=== PATIENT | female | born 1965 | race Caucasian/White ===

== ENCOUNTER → 2021-06-03 11:27 | Outpatient (BNVA) | payer MEDICARE, SELFPAY | PROVIDERS: Visit Provider Nurse Practitioner Family | DX: K58.2 Mixed irritable bowel syndrome (principal); I10 Essential (primary) hypertension; E55.9 Vitamin D deficiency, unspecified; E11.9 Type 2 diabetes mellitus without complications; I25.2 Old myocardial infarction | CPT/HCPCS: 80053; 80061; 81003; 82306; 83036; 84443; 85025 ==

== ENCOUNTER → 2021-09-17 08:43 | Outpatient (BNVA) | payer MEDICARE, SELFPAY | PROVIDERS: PCP Nurse Practitioner Family; Visit Provider Nurse Practitioner Family | DX: I10 Essential (primary) hypertension (principal); E11.9 Type 2 diabetes mellitus without complications | CPT/HCPCS: 36415; 80053; 85025 ==

== ENCOUNTER 2021-11-17 10:47 | Outpatient (CLI) | payer MEDICARE, MEDICAID, SELFPAY ==
[2021-11-17 12:09] LABS: HIV 1 & 2 Antibody Non-Reactive (Non-Reactiv); HIV 1 & 2 Antigen Non-Reactive (Non-Reactiv)
[2021-11-20 14:49] LABS: Quantiferon Mitogen >10.00 IU/mL; Quantiferon Nil 0.01 IU/mL; Quantiferon Plus TB2 0.01 IU/mL; Quantiferon TB Gold NEGATIVE (NEGATIVE)
== END 2021-11-17 10:48 | disposition home or self-care (01) ==
LOC: LAB 11:04
PROVIDERS: PCP Nurse Practitioner Family; Visit Provider Dermatology
DX: L40.50 Arthropathic psoriasis, unspecified (principal); L40.9 Psoriasis, unspecified; Z79.899 Other long term (current) drug therapy
CPT/HCPCS: 36415; 86480; 87806

== ENCOUNTER → 2022-01-21 09:28 | Outpatient (BNVA) | payer MEDICARE, MEDICAID, SELFPAY | PROVIDERS: PCP Nurse Practitioner Family; Visit Provider Internal Medicine | DX: J98.9 Respiratory disorder, unspecified (principal); R50.9 Fever, unspecified; Z20.822 Contact with and (suspected) exposure to COVID-19 | CPT/HCPCS: 87635 ==

== ENCOUNTER 2022-01-24 06:33 | Day surgery (SDC) | payer MEDICARE, MEDICAID, SELFPAY ==
[2022-01-21 07:58] VITALS: BMI 47.7
--- NOTE | 2022-01-24 07:11 | ANES.PREANE2 ---
Pre-Anesthetic Assessment Height/Weight: Height 1.65 m Weight 130.181 kg Preop Diagnosis: Dysphagia, Screen Operation Date: 01/24/22 08:15 Proposed Procedures p EGD Dilation w/bougle/colonoscopy [id number]/R13.10 dysphagia(Not Applicable) - Rey Wells MD s Colonoscopy(Not Applicable) - Rey Wells MD Familial anesthetic complications: None Was Beta Kartik taken within 24 hours: Yes Was Clonidine taken within 24 hours: N/A Last intake: 01/23/22 Social No alcohol and No tobacco Exam alert, oriented x 3, clear to auscultation bilaterally and regular rate & rhythm Airway Submandibular: within normal limits Cervical ROM: within normal limits Mallampati: Class II Comments: Comments: Missing teeth Pulmonary Exertional Dyspnea and Sleep Apnea (On BIPAP) CV/HEM Stable Angina, Hypertension and Myocardial Infarction Chest pain with exertion Hepatic None reported GI Gastroesophageal Reflux Disease IBS Metabolic Diabetes Mellitus [facility] Fibromyalgia and Osteoarthritis/DJD Psoriatic arthritis Neuropsych Anxiety, Cerebrovascular Accident (Residual LE weakness) and Depression Anesthetic Plan ASA status: 3 Anesthesia: Anesthesia Evaluation Other: I discussed with the patient risks, goals, and benefits of MAC and general anesthesia. We discussed spectrum of MAC anesthesia including conversion to general as well as possibility of recall of intraoperative stimuli including discomfort/pain. Patient agrees to proceed with MAC. Risk of > 500 ml blood loss (7ml/kg in children): No Medications/Allergies Home Medications Medication Instructions Recorded Confirmed Last Taken Type amlodipine 10 mg tablet 10 mg PO DAILY 06/03/21 01/24/22 01/23/22 History blood-glucose meter (Accu-Chek 06/03/21 01/21/22 Unknown History Nellie Plus Meter) carvedilol 12.5 mg tablet (Coreg) 12.5 mg PO BID 06/03/21 01/24/22 01/24/22 04:30 History cholecalciferol (vitamin D3) 1,250 50,000 unit PO .weekly cap 06/03/21 01/21/22 Unknown History mcg (50,000 unit) capsule clopidogrel 75 mg tablet (Plavix) 75 mg PO DAILY 06/03/21 01/24/22 01/20/22 History desonide 0.05 % topical cream 1 applic TOPICAL BID 06/03/21 01/24/22 01/23/22 History diclofenac sodium 1 % topical gel 2 g TOPICAL QID 06/03/21 01/24/22 01/23/22 History ibuprofen 800 mg tablet 800 mg PO TID 06/03/21 01/24/22 01/23/22 History blood-glucose meter #90 ea 08/16/21 01/21/22 Unknown Rx clobetasol 0.05 % topical ointment 1 applic TOPICAL BID 14 Days #60 g 09/30/21 01/24/22 01/23/22 Rx guselkumab 100 mg/mL subcutaneous 100 mg SUBCUT .q8 weeks #1 ml 10/28/21 01/21/22 Unknown Rx auto-injector (Tremfya) omeprazole 40 mg capsule,delayed 40 mg PO DAILY 30 Days #30 cap 11/04/21 01/24/22 01/23/22 Rx release gabapentin 600 mg tablet See Rx Instructions PO TID 30 Days 11/10/21 01/24/22 01/23/22 Rx #120 tab sertraline 100 mg tablet 100 mg PO DAILY 90 Days #90 tab 11/10/21 01/24/22 01/23/22 Rx sertraline 50 mg tablet 50 mg PO DAILY 90 Days #90 tab 11/10/21 01/24/22 01/23/22 Rx walker #1 ea 11/10/21 01/21/22 Unknown Rx atorvastatin 40 mg tablet See Rx Instructions .ROUTE 01/03/22 01/24/22 01/23/22 Rx .COMPLEX #30 tab lorazepam 0.5 mg tablet 0.5 mg PO DAILY PRN 30 Days #15 tab 01/06/22 01/24/22 01/23/22 Rx ondansetron 4 mg disintegrating 4 mg TRANSLINGUAL Q8H PRN tab 01/06/22 01/24/22 01/23/22 History tablet promethazine 25 mg tablet 25 mg PO TID PRN 10 Days #30 tab 01/06/22 01/24/22 01/23/22 Rx Allergies Allergy/AdvReac Type Severity Reaction Status Date / Time aspirin Allergy Intermediate sick Verified 01/24/22 07:19 codeine Allergy Intermediate sick Verified 01/24/22 07:19 tetracycline Allergy Intermediate sick Verified 01/24/22 07:19 amoxicillin AdvReac Mild itching Verified 01/24/22 07:19 [facility] Anesthesia Medical History Anxiety Anxiety and depression Arthritis of both shoulder regions Breast cancer screening by mammogram Controlled diabetes mellitus type II without complication CVA (cerebrovascular accident due to intracerebral hemorrhage) Aug 2017 TPA, Oct 2016 TAP, Sep 2016, Aug 2016, and 2013. Dental infection Depression Diabetic eye exam Encounter for BiPAP use counseling Eye exam, routine Fibromyalgia Frequent falls GERD (gastroesophageal reflux disease) History of myocardial infarction November Hypertension IBS (irritable bowel syndrome) Migraines Mixed hyperlipidemia Nausea & vomiting Neuropathy Obstructive sleep apnea Last Sleep study Nov 2020 at [facility] Psoriasis Psoriatic arthritis Tympanic membrane perforation Vitamin D deficiency Surgical History H/O bilateral mastectomy Breast cancer diagnosed at age 18 Found lump in right breast that increased. This surgery was done at [place]. History of hysterectomy JONATHAN with oopherectomy Age 21. Uterine Cancer S/P tonsillectomy Social History Smoking and tobacco status: never smoked History of recent travel: No Data Anesthesia Cardiac Studies: No Data to Display
[2022-01-24 07:18] VITALS: BP 168/92; PULSE 66; RESP 18; TEMP 36.3; O2SAT 97
--- NOTE | 2022-01-24 07:32 | P.HP_ITS ---
Same Day Surgery H&P Indication for Procedure/HPI DATE OF PROCEDURE: January 24, 2022 CHIEF COMPLAINT/INDICATIONFOR SURGICAL PROCEDURE: Screening and dysphagia PREOP DIAGNOSIS: Dysphagia, Screen PLANNED PROCEDURE: Operation Date: 01/24/22 08:15 Proposed Procedures p EGD Dilation w/bougle/colonoscopy [id number]/R13.10 dysphagia(Not Applicable) - Rey Wells MD s Colonoscopy(Not Applicable) - Rey Wells MD Medications/Allergies* Home Medications Medication Instructions Recorded Confirmed Type amlodipine 10 mg tablet 10 mg PO DAILY 06/03/21 01/24/22 History blood-glucose meter (Accu-Chek 06/03/21 01/21/22 History Nellie Plus Meter) carvedilol 12.5 mg tablet (Coreg) 12.5 mg PO BID 06/03/21 01/24/22 History cholecalciferol (vitamin D3) 1,250 50,000 unit PO .weekly cap 06/03/21 01/21/22 History mcg (50,000 unit) capsule clopidogrel 75 mg tablet (Plavix) 75 mg PO DAILY 06/03/21 01/24/22 History desonide 0.05 % topical cream 1 applic TOPICAL BID 06/03/21 01/24/22 History diclofenac sodium 1 % topical gel 2 g TOPICAL QID 06/03/21 01/24/22 History ibuprofen 800 mg tablet 800 mg PO TID 06/03/21 01/24/22 History ondansetron 4 mg disintegrating 4 mg TRANSLINGUAL Q8H PRN tab 01/06/22 01/24/22 History tablet Allergies/Adverse Reactions Allergy/AdvReac Type Severity Reaction Status Date / Time aspirin Allergy Intermediate sick Verified 01/24/22 07:19 codeine Allergy Intermediate sick Verified 01/24/22 07:19 tetracycline Allergy Intermediate sick Verified 01/24/22 07:19 amoxicillin AdvReac Mild itching Verified 01/24/22 07:19 Pertinent History/Comorbid Conditions* Medical History (Updated 01/06/22 @ 09:34 by SIOBHAN Maradiaga) Anxiety Anxiety and depression Arthritis of both shoulder regions Breast cancer screening by mammogram Controlled diabetes mellitus type II without complication CVA (cerebrovascular accident due to intracerebral hemorrhage) Aug 2017 TPA, Oct 2016 TAP, Sep 2016, Aug 2016, and 2013. Dental infection Depression Diabetic eye exam Encounter for BiPAP use counseling Eye exam, routine Fibromyalgia Frequent falls GERD (gastroesophageal reflux disease) History of myocardial infarction November Hypertension IBS (irritable bowel syndrome) Migraines Mixed hyperlipidemia Nausea & vomiting Neuropathy Obstructive sleep apnea Last Sleep study Nov 2020 at [facility] Psoriasis Psoriatic arthritis Tympanic membrane perforation Vitamin D deficiency Surgical History (Updated 06/03/21 @ 09:31 by SIOBHAN Maradiaga) H/O bilateral mastectomy Breast cancer diagnosed at age 18 Found lump in right breast that increased. This surgery was done at [place]. History of hysterectomy JONATHAN with oopherectomy Age 21. Uterine Cancer S/P tonsillectomy Social History Smoking and tobacco status: never smoked History of recent travel: No Pertinent Exam Findings alert, oriented x 3, clear to auscultation bilaterally, regular rate & rhythm, operative site marked and procedure specific exam findings Recommendations Surgery/Procedure today Coding Level of Care Code Acute Supervisor Remelt for Vitag Janie
[2022-01-24] MEDS: sodium chloride 0.9% 1,000 ML 30 ML IV (07:38)
[2022-01-24 08:32] VITALS: BP 166/81; PULSE 63; RESP 16; TEMP 36.1; O2SAT 94
[2022-01-24 08:42] VITALS: BP 158/83; PULSE 61; RESP 16; TEMP 36.1; O2SAT 96
--- NOTE | 2022-01-24 13:48 | ANE.PACU2 ---
Inpatient post-anesthesia follow up: Airway intact: Yes Vital signs: Temperature 97 F Pulse Rate 61 Respiratory Rate 16 Blood Pressure 158/83 Pulse Oximetry 96 Oxygen Delivery Me thod Room Air Oxygen Flow Rate Fraction of Inspir ed Oxygen Hydration adequate: Yes Nausea and vomiting: No Pain level: 1 Mental status: Baseline
[2022-01-26 09:45] LABS: H. Pylori / CLO Test Negative
== END 2022-01-24 09:07 | disposition home or self-care (01) ==
PROVIDERS: PCP Nurse Practitioner Family; Visit Provider Internal Medicine
PROC: 0DJD8ZZ Inspection of Lower Intestinal Tract, Via Natural or Artificial Opening Endoscopic (ICD-10-PCS; CPT 45378; 2022-01-24 08:15)
DX: Z12.11 Encounter for screening for malignant neoplasm of colon (principal); K29.70 Gastritis, unspecified, without bleeding; R13.10 Dysphagia, unspecified; F41.9 Anxiety disorder, unspecified; F32.9 Major depressive disorder, single episode, unspecified; E11.9 Type 2 diabetes mellitus without complications; Z86.73 Personal history of transient ischemic attack (TIA), and cerebral infarction without residual deficits; M79.7 Fibromyalgia; I10 Essential (primary) hypertension; E78.2 Mixed hyperlipidemia; G47.33 Obstructive sleep apnea (adult) (pediatric)
CPT/HCPCS: 43239; 45378; 87077; G0121; J2704; J7030

== ENCOUNTER 2023-04-02 11:56 | Emergency (ER) | payer MEDICARE, SELFPAY ==
[2023-04-02] VITALS (9 sets, daily range): BP systolic 146–170; BP diastolic 80–119; PULSE 92–106; RESP 14–18; TEMP 37.2; O2SAT 89–98
--- NOTE | 2023-04-02 12:35 | CTR_ITS ---
PROCEDURE INFORMATION: Exam: CTA Chest With Contrast Exam date and time: 04/02/2023 1:15 PM Age: 58 years old Clinical indication: Abdominal pain; Generalized; Chest pressure and on breathing; Prior surgery; Surgery date: <1 month; Surgery type: Gallbladder, ; additional info: Diffuse abdominal pain TECHNIQUE: Imaging protocol: Computed tomographic angiography of the chest with contrast. Exam focused on the arteries. 3D rendering (Not supervised by radiologist): MIP and/or 3D reconstructed images were created by the technologist. Radiation optimization: All CT scans at this facility use at least one of these dose optimization techniques: automated exposure control; mA and/or kV adjustment per patient size (includes targeted exams where dose is matched to clinical indication); or iterative reconstruction. Contrast material: OMNI 350; Contrast volume: 100 ml; Contrast route: INTRAVENOUS (IV); REPORTING DATA: Count of CT and Cardiac NM exams in prior 12 months: This patient has received 0 known CTs and 0 known cardiac nuclear medicine studies in the 12 months prior to the current study. COMPARISON: CR (CHEST, ) 04/02/2023 1:02 PM RADIATION DOSE METRICS: Total DLP (mGy-cm): 1410.74 FINDINGS: Pulmonary arteries: Pulmonary vasculature is adequately opacified without filling defects or other evidence of acute pulmonary embolism. Aorta: Unremarkable. No aortic aneurysm. No aortic dissection. Lungs: See Pleural spaces finding. Pleural spaces: Moderate size right pleural effusion with adjacent atelectasis right lower lobe and right middle lobe. Heart: Heart is enlarged. No significant coronary artery calcifications or pericardial effusion. Lymph nodes: Unremarkable. No enlarged lymph nodes. Diaphragm: Moderately elevated right hemidiaphragm. Bones/joints: Unremarkable. No acute fracture. Soft tissues: Unremarkable. PROCEDURE INFORMATION: Exam: CT Abdomen And Pelvis With Contrast Exam date and time: 04/02/2023 1:15 PM Age: 58 years old Clinical indication: Abdominal pain; Generalized; Chest pressure and on breathing; Prior surgery; Surgery date: <1 month; Surgery type: Gallbladder, ; additional info: Diffuse abdominal pain TECHNIQUE: Imaging protocol: Computed tomography of the abdomen and pelvis with contrast. Radiation optimization: All CT scans at this facility use at least one of these dose optimization techniques: automated exposure control; mA and/or kV adjustment per patient size (includes targeted exams where dose is matched to clinical indication); or iterative reconstruction. Contrast material: OMNI 350; Contrast volume: 100 ml; Contrast route: INTRAVENOUS (IV); REPORTING DATA: Count of CT and Cardiac NM exams in prior 12 months: This patient has received 0 known CTs and 0 known cardiac nuclear medicine studies in the 12 months prior to the current study. COMPARISON: CR (CHEST, ) 04/02/2023 1:02 PM RADIATION DOSE METRICS: Total DLP (mGy-cm): 1410.74 FINDINGS: Lungs: Lung bases are clear. Liver: Liver is enlarged secondary to large mixed intraparenchymal and subcapsular liver hematoma that measures 18 x 12 cm in the coronal plane that appears relatively acute in onset. There is no significant hemoperitoneum within the peritoneal cavity. Gallbladder and bile ducts: Gallbladder has been removed. There is a very small fluid collection with some air bubbles within the gallbladder fossa. There is a biliary stent within the distal common bile duct. There is a small amount of pneumobilia likely related to the stent. There is no significant biliary dilatation. Pancreas: Unremarkable. Main pancreatic duct is not significantly dilated. Spleen: Normal. No splenomegaly. Adrenal glands: Normal. No mass. Kidneys and ureters: Normal. No hydronephrosis. Stomach and bowel: Unremarkable. No obstruction. No mucosal thickening. Appendix: No evidence of appendicitis. Intraperitoneal space: There is some ill-defined fat stranding within the subhepatic space inferior to the right lobe with a few small extraluminal air bubbles on the present of uncertain etiology. Vasculature: Unremarkable. No abdominal aortic aneurysm. Lymph nodes: Unremarkable. No enlarged lymph nodes. Urinary bladder: Unremarkable as visualized. Reproductive: uterus has been removed. Bones/joints: Unremarkable. No acute fracture. Soft tissues: There is mild swelling within the right lateral abdominal wall with some indistinct fluid noted in the subcutaneous fatty tissues. There are mild postoperative changes just above the umbilicus. . CT/CT angio chest w abd pel w con IMPRESSION: 1. Negative CT angiogram of the chest. No evidence of acute pulmonary embolism. 2. Elevated right hemidiaphragm with moderate size right pleural effusion and adjacent atelectasis right lower lobe and right middle lobe. IMPRESSION: 1. Very large mixed intraparenchymal/subcapsular liver hematoma measuring 18 x 12 cm relatively acute in onset. 2. Mild inflammatory fat stranding inferior to the liver margin with few small extraluminal air bubbles away from the postsurgical bed raising concern for occult bowel perforation or low-grade bile leak. 3. Prior cholecystectomy with small residual fluid air-fluid collection in the gallbladder fossa, nonspecific. 4. There is a biliary stent in place with mild associated pneumobilia.
--- NOTE | 2023-04-02 12:35 | XRR_ITS ---
PROCEDURE INFORMATION: Exam: XR Chest Exam date and time: 04/02/2023 1:02 PM Age: 58 years old Clinical indication: Other: N/v; Additional info: Nausea/vomiting TECHNIQUE: Imaging protocol: Radiologic exam of the chest. Views: 1 view. COMPARISON: No relevant prior studies available. FINDINGS: Lungs: Moderate opacification right hemithorax likely in part due to right effusion and atelectasis. Left lung field is relatively clear. Pleural spaces: Unremarkable. No pleural effusion. No pneumothorax. Heart/Mediastinum: Heart is moderately enlarged. Bones/joints: Unremarkable for age. XR/XR chest 1V portable [id number] IMPRESSION: Cardiomegaly with moderate-large right pleural effusion and adjacent consolidation right lower lobe likely in part due to atelectasis.
[2023-04-02] MEDS: morphine 4 mg/mL SDV 1 mL IVP ×2 (12:50→15:40)
[2023-04-02] MEDS: sodium chloride 0.9% 1,000 ML 999 ML IV (12:50)
[2023-04-02] MEDS: ondansetron 2 mg/ML SDV 2 mL 4 MG IVP (12:50)
--- NOTE | 2023-04-02 12:59 | ED_ITS ---
HPI - Abdominal Pain General: Chief Complaint: Abdominal Pain Stated Complaint: post gallbladder removal issues, abd pain Time Seen by Provider: 04/02/23 12:11 Source: patient and police Mode of arrival: ambulatory History of Present Illness: This 58-year-old female was brought in from shelter with generalized abdominal pain, poor appetite and nausea that started about 4 days ago. Patient recalls how she has fallen for the last couple of days because of difficulties trying to get around the shelter. She has been in shelter since October 2022. Around March 17, 2023, patient had a laparoscopic cholecystectomy at [facility] following which she developed complications due to injury to the common bile duct and the liver. She was subsequently transferred to [facility] where they did a laparotomy to repair the injuries. Currently, patient complains of generalized abdominal pain. She has a history of COPD and was using 1.5 L of oxygen via nasal cannula at home. However since being in shelter (October 2022) she has been without oxygen. Yesterday she developed shortness of breath. She denies chest pain. She has no fever or diarrhea. Associated Symptoms: Reports nausea; Denies chills and dysuria Review of Systems Const: Reports: change in appetite (Poor appetite) and fatigue; Denies: chills or body aches Eyes: Denies: change in vision or eye discharge ENMT: Denies: throat pain, dental pain or nasal discharge Card: Denies: chest pain or lightheadedness Resp: Reports: dyspnea GI: Reports: abdominal pain and nausea : Denies: dysuria Musc: Denies: neck pain or back pain Neuro: Denies: headache(s) or weakness in extremities Psych: Denies: depression Khadar/Lymph: Denies: easy bruising All/Imm: Denies: urticaria, tongue swelling or facial swelling PFSH ED PFSH: Medical History Anxiety Anxiety and depression Arthritis of both shoulder regions Breast cancer screening by mammogram Controlled diabetes mellitus type II without complication CVA (cerebrovascular accident due to intracerebral hemorrhage) Aug 2017 TPA, Oct 2016 TAP, Sep 2016, Aug 2016, and 2013. Dental infection Depression Diabetic eye exam Encounter for BiPAP use counseling Eye exam, routine Fibromyalgia Frequent falls GERD (gastroesophageal reflux disease) History of myocardial infarction November Hypertension IBS (irritable bowel syndrome) Migraines Mixed hyperlipidemia Nausea & vomiting Neuropathy Obstructive sleep apnea Last Sleep study Nov 2020 at [facility] Psoriasis Psoriatic arthritis Tympanic membrane perforation Vitamin D deficiency Surgical History H/O bilateral mastectomy Breast cancer diagnosed at age 18 Found lump in right breast that increased. This surgery was done at [place]. History of hysterectomy JONATHAN with oopherectomy Age 21. Uterine Cancer S/P tonsillectomy Social History Smoking and tobacco status: never smoked Physical Exam Const: COMMON NORMALS: patient oriented x3, no limitations and alert HENMT: COMMON NORMALS: normocephalic HEAD & SCALP: normocephalic Eye: COMMON NORMALS: EOMs intact bilaterally OTHER: Pallor Neck/C-Spine: COMMON NORMALS: full ROM and supple Chest: COMMONS NORMALS: normal inspection of the chest Resp: COMMON NORMALS: normal respiratory effort, No retractions, No use of accessory muscles and clear to auscultation bilaterally AUSCULTATION: clear to auscultation bilaterally Cardio: COMMON NORMALS: regular rate, regular rhythm and No murmurs present (Cardio) RATE: regular rate RHYTHM: regular rhythm GI: COMMON NORMALS: Normal to inspection, nondistended, normoactive bowel sounds present OTHER: Healed surgical scar in the right subcostal margin and also in the periumbilical region. Abdomen is diffusely tender to palpation. : COMMON NORMALS: Yes no CVA tenderness BLADDER/KIDNEY EXAM: Yes no CVA tenderness Back/Pelvis: COMMON NORMALS: no CVA tenderness and no thoracic nor lumbar tenderness Extremity: GENERAL: Yes normal exam except as noted Neuro: COMMON NORMALS: patient oriented x3 and no focal motor deficits SENSORIUM/ORIENTATION: Yes alert Psych: COMMON NORMALS: mental status grossly normal and cooperative Course Reevaluation(s): Reevaluation #1: Patient reevaluated. Pain is more tolerable. White count is elevated so she will be started on IV antibiotics. Reevaluation #2: Patient reevaluated. I updated her that we are waiting for [facility] to review her CT scan and call us back. Consultations: Consultation #1: Radiologist called to discuss patient's CT chest/abdomen/pelvis findings. He noted that there is a liver hematoma and air bubbles that is suspicious for either a bile leak or possible bowel perforation. Given that surgery was done in the last few weeks, patient will be transferred back to [facility] where the surgery was done. Called [place] transfer center. They will get one of the physicians and call us back. Time: 14:45 Consultation #2: Case discussed with Dr. Neal at [facility]. She notes that hansel ent had hematoma the last time they evaluated her. So, she would like to compare the CT scan with theirs before they make a decision. When she evaluates the CT scans she will call us back. Time: 15:35 Vital Signs: Vital signs: Vital Signs Temperature 98.9 F 04/02/23 17:30 Pulse Rate 92 04/02/23 18:00 Respiratory Rate 14 04/02/23 15:40 Blood Pressure 150/80 04/02/23 18:00 Pulse Oximetry 97 04/02/23 18:00 Oxygen Delivery Me thod Nasal Cannula 04/02/23 15:30 Oxygen Flow Rate 3 04/02/23 15:30 MDM - Abdominal Pain Medical Decision Making Medical decision making: Patient was brought in for evaluation of worsening right upper quadrant pain. CT abdomen reveals liver hematoma. Because she had a recent surgery at [facility], they were contacted. They accepted patient in transfer. Lab Data 04/02/23 13:03 04/02/23 13:03 Labs/Radiology: Radiology Impressions Chest X-Ray 04/02/23 12:35 IMPRESSION: Cardiomegaly with moderate-large right pleural effusion and adjacent consolidation right lower lobe likely in part due to atelectasis. Chest/Abdomen/Pelvis CT 04/02/23 12:35 IMPRESSION: 1. Negative CT angiogram of the chest. No evidence of acute pulmonary embolism. 2. Elevated right hemidiaphragm with moderate size right pleural effusion and adjacent atelectasis right lower lobe and right middle lobe. IMPRESSION: 1. Very large mixed intraparenchymal/subcapsular liver hematoma measuring 18 x 12 cm relatively acute in onset. 2. Mild inflammatory fat stranding inferior to the liver margin with few small extraluminal air bubbles away from the postsurgical bed raising concern for occult bowel perforation or low-grade bile leak. 3. Prior cholecystectomy with small residual fluid air-fluid collection in the gallbladder fossa, nonspecific. 4. There is a biliary stent in place with mild associated pneumobilia. ADDENDUM: 04/02/23 0601 THIS REPORT CONTAINS FINDINGS THAT MAY BE CRITICAL TO PATIENT CARE. The findings were verbally communicated via telephone conference with VANNA KLINE at 2:08 PM CDT on 04/02/2023. The findings were acknowledged and understood. Laboratory Results WBC 23.8 10^3/uL (4.0-10.0) H 04/02/23 13:03 RBC 3.00 10^6/uL (4.1-5.3) L 04/02/23 13:03 Hgb 8.1 g/dL (11.5-15.3) L 04/02/23 13:03 Hct 26.7 % (37.0-47.0) L 04/02/23 13:03 MCV 89.0 fl (81-99) 04/02/23 13:03 MCH 27.0 pg (28.0-34.0) L 04/02/23 13:03 MCHC 30.3 g/dL (30.0-36.0) 04/02/23 13:03 RDW 15.9 % (12.1-15.1) H 04/02/23 13:03 Plt Count 577 10^3/cmm (130-400) H 04/02/23 13:03 MPV 10.8 fL (7.4-10.4) H 04/02/23 13:03 Neut % (Auto) 84.5 % 04/02/23 13:03 Lymph % (Auto) 7.6 % 04/02/23 13:03 Emmons % (Auto) 7.1 % 04/02/23 13:03 Eos % (Auto) 0.0 % 04/02/23 13:03 Baso % (Auto) 0.2 % 04/02/23 13:03 Neut # (Auto) 20.06 10^3/uL (1.8-7.7) H 04/02/23 13:03 Lymph # (Auto) 1.8 10^3/uL (0.8-4.8) 04/02/23 13:03 Emmons # (Auto) 1.7 10^3/uL (0.2-0.9) H 04/02/23 13:03 Eos # (Auto) 0.0 10^3/uL (0.0-0.8) 04/02/23 13:03 Baso # (Auto) 0.1 10^3/uL (0.0-0.1) 04/02/23 13:03 Nucleated RBC % (auto) 0 % 04/02/23 13:03 Nucleated RBCs # 0.0 /100WBC 04/02/23 13:03 Sodium 139 mmol/L (136-145) 04/02/23 13:03 Potassium 3.9 mmol/L (3.5-5.1) 04/02/23 13:03 Chloride 102 mmol/L (98-107) 04/02/23 13:03 Carbon Dioxide 23 mmol/L (22-29) 04/02/23 13:03 Anion Gap 17.9 (5-19) 04/02/23 13:03 BUN 18 mg/dL (6-20) 04/02/23 13:03 Creatinine 0.5 mg/dL (0.5-0.9) 04/02/23 13:03 GFR Calculation 126.7 mL/min (90-130) 04/02/23 13:03 Glucose 72 mg/dL (65-115) 04/02/23 13:03 Calculated Osmolality 288 mOsm/kg (285-295) 04/02/23 13:03 Calcium 8.5 mg/dL (8.5-10.5) 04/02/23 13:03 Total Bilirubin 1.0 mg/dL (0.15-1.2) 04/02/23 13:03 AST 64 U/L (0-32) H 04/02/23 13:03 ALT 39 U/L (0-33) H 04/02/23 13:03 Alkaline Phosphatase 169 U/L (35-105) H 04/02/23 13:03 Total Protein 6.7 g/dL (6.6-8.7) 04/02/23 13:03 Albumin 2.6 g/dL (3.5-5.2) L 04/02/23 13:03 Globulin 4.1 g/dL (1.3-4.6) 04/02/23 13:03 Urine Color Arline (Yellow) 04/02/23 17:07 Urine Appearance Sl hazy (CLEAR) A 04/02/23 17:07 Urine pH 7 (5-7) 04/02/23 17:07 Ur Specific Fernwood 1.005 (1.005-1.030) 04/02/23 17:07 Urine Protein 1+ (Negative) H 04/02/23 17:07 Urine Glucose (UA) Norm (Normal) 04/02/23 17:07 Urine Ketones 1+ (Negative) H 04/02/23 17:07 Urine Blood Neg (Negative) 04/02/23 17:07 Urine Nitrate Negative (Negative) 04/02/23 17:07 Urine Bilirubin 1+ (Negative) H 04/02/23 17:07 Urine Urobilinogen 4+ mg/dL (Negative) H 04/02/23 17:07 Ur Leukocyte Esterase Trace (Negative) H 04/02/23 17:07 Urine RBC None /hpf (0-2) 04/02/23 17:07 Urine WBC Rare /hpf (0-5) 04/02/23 17:07 Ur Squamous Epith Cells 0-4 /hpf (0-5) H 04/02/23 17:07 Amorphous Sediment Not Reportable 04/02/23 17:07 Urine Bacteria Trace /hpf (NONE) 04/02/23 17:07 Other Casts Waxy /lpf 04/02/23 17:07 Urine Mucus 1+ /hpf 04/02/23 17:07 Discharge Plan Discharge Patient Disposition: Xfer Short-Term Hosp Clinical Impression: Liver hematoma Condition: Stable Referrals: Rajni,WILLIAN, DOT COMPLIANCE COORDINATOR [Primary Care Provider] - Coding Level of Care Code ED Money Laundering Investigator for Claribel Lima
[2023-04-02 13:10] LABS: Basophils # 0.1 10^3/uL (0.0-0.1); Basophils % 0.2 %; Hematocrit 26.7 % (37.0-47.0); Hemoglobin 8.1 g/dL (11.5-15.3); Lymphocytes # 1.8 10^3/uL (0.8-4.8); Lymphocytes % 7.6 %; Mean Corpuscular HGB Conc 30.3 g/dL (30.0-36.0); Mean Platelet Volume 10.8 fL (7.4-10.4); Monocytes # 1.7 10^3/uL (0.2-0.9); Monocytes % 7.1 %; Neutrophils # 20.06 10^3/uL (1.8-7.7); Neutrophils % 84.5 %; Nucleated Red Blood Cells % 0 %; Platelet Count 577 10^3/cmm (130-400); Red Cell Distribution Width 15.9 % (12.1-15.1); White Blood Count 23.8 10^3/uL (4.0-10.0)
[2023-04-02 13:38] LABS: Alanine Aminotransferase 39 U/L (0-33); Albumin Level 2.6 g/dL (3.5-5.2); Alkaline Phosphatase 169 U/L (35-105); Aspartate Amino Transferase 64 U/L (0-32); Blood Urea Nitrogen 18 mg/dL (6-20); Calcium 8.5 mg/dL (8.5-10.5); Carbon Dioxide 23 mmol/L (22-29); Chloride 102 mmol/L (98-107); Globulin 4.1 g/dL (1.3-4.6); Glomerular Filtration Rate 126.7 mL/min (90-130); Glucose 72 mg/dL (65-115); Osmolality Calculated 288 mOsm/kg (285-295); Sodium 139 mmol/L (136-145); Total Protein 6.7 g/dL (6.6-8.7)
[2023-04-02 13:52] LABS: Anion Gap 17.9 (5-19); Potassium 3.9 mmol/L (3.5-5.1)
[2023-04-02] MEDS: piperacillin-tazobactam 4.5 GM in sodium chloride 0.9% (plus) 50 ML IV (16:18)
[2023-04-02 17:27] LABS: Bilirubin Urine 1+ (Negative); Blood Urine Neg (Negative); Glucose Urine UA Norm (Normal); Ketones Urine 1+ (Negative); Nitrate Urine Negative (Negative); Protein Urine 1+ (Negative); Specific Gravity, Urine 1.005 (1.005-1.030); Urine Appearance SL Hazy (CLEAR); Urine Color Amber (Yellow); Urobilinogen Urine 4+ mg/dL (Negative); pH Urine 7 (5-7)
[2023-04-02 17:28] LABS: Add Urine Microscopic? YES; Bacteria Urine TRACE /hpf; Leukocyte Esterase Urine Trace (Negative); Mucus Urine 1+ /hpf; Other Casts Urine WAXY /lpf; Squamous Epithelial Cell Urine 0-4 /hpf (0-5); WBC Urine RARE /hpf (0-5)
[2023-04-02 17:29] LABS: Add Urine Culture? No
--- NOTE | 2023-04-02 18:01 | PC.NURSE ---
report given to Mabel at [facility] for triage. they will call when they have an available bed
== END 2023-04-02 21:05 | disposition short-term general hospital (02) ==
PROVIDERS: Emergency Provider Family Medicine; PCP Nurse Practitioner Family
DX: S36.112A Contusion of liver, initial encounter (principal); X58.XXXA Exposure to other specified factors, initial encounter; Z98.890 Other specified postprocedural states; Z90.49 Acquired absence of other specified parts of digestive tract
CPT/HCPCS: 36415; 71045; 71275; 74177; 80053; 81001; 85025; 87040; 96365; 96375; 96376; 99285; J2270; J2405; J2543; J7030; Q9967

== ENCOUNTER 2023-04-11 23:27 | Emergency (ER) | payer MEDICARE, SELFPAY ==
[2023-04-11 23:29] VITALS: BMI 33.3
[2023-04-11 23:31] VITALS: BP 161/99; PULSE 107; RESP 16; TEMP 36.9; O2SAT 92
--- NOTE | 2023-04-11 23:33 | ED_ITS ---
HPI - Abdominal Pain General: Chief Complaint: Abdominal Pain Stated Complaint: fluid buildup at surgical site Time Seen by Provider: 04/11/23 23:33 History of Present Illness: 58-year-old female comes in today for concerns right flank pain. Patient on the fourth of this month was found to have a hematoma that needed to be drained and was completed at [facility] in [place]. Patient at this time is incarcerated in the [facility] pen[facility]. Patient has a history of diabetes mellitus, GERD, recent cholecystectomy, hypertension, breast cancer, coronary artery disease. Patient appears chronically ill. Patient appears nontoxic. Patient appears in no pain. On 17 March patient had a cholecystectomy at that time her common bile duct was damaged in which she had to be transferred to [facility] for repair. On 02 April patient was seen in this emergency room and then was transferred to [facility] after it was noted she had a large hematoma to her liver and concerns for perforation of the bowel. Review of Systems General: Reports: 10 or more systems reviewed and unremarkable except in HPI and below GI: Reports: abdominal pain PFSH ED PFSH: Medical History Anxiety Anxiety and depression Arthritis of both shoulder regions Breast cancer screening by mammogram Controlled diabetes mellitus type II without complication CVA (cerebrovascular accident due to intracerebral hemorrhage) Aug 2017 TPA, Oct 2016 TAP, Sep 2016, Aug 2016, and 2013. Dental infection Depression Diabetic eye exam Encounter for BiPAP use counseling Eye exam, routine Fibromyalgia Frequent falls GERD (gastroesophageal reflux disease) History of myocardial infarction November Hypertension IBS (irritable bowel syndrome) Migraines Mixed hyperlipidemia Nausea & vomiting Neuropathy Obstructive sleep apnea Last Sleep study Nov 2020 at [facility] Psoriasis Psoriatic arthritis Tympanic membrane perforation Vitamin D deficiency Surgical History H/O bilateral mastectomy Breast cancer diagnosed at age 18 Found lump in right breast that increased. This surgery was done at [place]. History of hysterectomy JONATHAN with oopherectomy Age 21. Uterine Cancer S/P tonsillectomy Social History Smoking and tobacco status: never smoked Physical Exam Const: COMMON NORMALS: alert HENMT: COMMON NORMALS: normocephalic HEAD & SCALP: normocephalic Neck/C-Spine: COMMON NORMALS: full ROM Resp: COMMON NORMALS: normal respiratory effort and clear to auscultation bilaterally AUSCULTATION: clear to auscultation bilaterally Cardio: COMMON NORMALS: regular rate and regular rhythm RATE: regular rate RHYTHM: regular rhythm GI: COMMON NORMALS: Soft to palpation and non-tender PALPATION: Yes Soft to palpation : BLADDER/KIDNEY EXAM: Yes CVA tenderness on the right Back/Pelvis: COMMON NORMALS: thoracic and lumbar spine normal to inspection GENERAL BACK: Yes CVA tenderness Extremity: COMMON NORMALS: no pedal edema Neuro: SENSORIUM/ORIENTATION: Yes alert Skin: COMMON NORMALS: turgor normal GENERAL SKIN EXAM: turgor normal Course Vital Signs: Vital signs: Vital Signs Temperature 98.4 F 04/11/23 23:31 Pulse Rate 107 H 04/11/23 23:31 Respiratory Rate 16 04/11/23 23:31 Blood Pressure 161/99 04/11/23 23:31 Pulse Oximetry 92 04/11/23 23:31 Oxygen Delivery Me thod Room Air 04/11/23 23:31 MDM - Abdominal Pain Medical Decision Making Patient was brought in today for concerns of some right upper quadrant abdominal tenderness. On exam abdomen soft with some tenderness in the right upper quadrant. Bowel sounds are present. Skin is warm and dry. No masses are noted in the abdominal exam. Differential diagnosis includes but not limited to abdominal infection, abscess, hematoma to the liver, anxiety about health, c onstipation, malingering. CBC showed improvement in the white blood cell count at 13,000, CMP was un remarkable. Repeat CT scan showed no significant change from prior exam. Reviewed with Dr. Rodriguez who agreed to plan for discharge to penitentiary and follow-up with specialist office in the morning. Patient was stable for discharge with no signs of severe illness or injury. Lab Data 04/11/23 23:37 04/11/23 23:37 Labs/Radiology: Radiology Impressions Abdomen/Pelvis CT 04/11/23 23:34 IMPRESSION: 1. Again seen is an apparent subcapsular/intraparenchymal hematoma, measuring up to 18 x 13 cm, somewhat more prominent compared to prior exam. 2. Stent in the common bile duct with pneumobilia. 3. Cholecystectomy with a small amount of edema in the gallbladder fossa. 4. Small to moderate right pleural effusion. 5. Right lower lobe pneumonia. 6. Coronary artery atherosclerotic calcifications. Laboratory Results WBC 13.4 10^3/uL (4.0-10.0) H 04/11/23 23:37 RBC 3.26 10^6/uL (4.1-5.3) L 04/11/23 23:37 Hgb 8.7 g/dL (11.5-15.3) L 04/11/23 23:37 Hct 28.8 % (37.0-47.0) L 04/11/23 23: MCV 88.3 fl (81-99) 04/11/23 23: MCH 26.7 pg (28.0-34.0) L 04/11/23 23: MCHC 30.2 g/dL (30.0-36.0) 04/11/23 23: RDW 16.4 % (12.1-15.1) H 04/11/23 23:37 Plt Count 491 10^3/cmm (130-400) H 04/11/23 23:37 MPV 10.4 fL (7.4-10.4) 04/11/23 23:37 Neut % (Auto) 73.4 % 04/11/23 23:37 Lymph % (Auto) 17.7 % 04/11/23 23:37 Treasure % (Auto) 6.2 % 04/11/23 23:37 Eos % (Auto) 1.5 % 04/11/23 23:37 Baso % (Auto) 0.5 % 04/11/23 23:37 Neut # (Auto) 9.84 10^3/uL (1.8-7.7) H 04/11/23 23:37 Lymph # (Auto) 2.4 10^3/uL (0.8-4.8) 04/11/23 23:37 Treasure # (Auto) 0.8 10^3/uL (0.2-0.9) 04/11/23 23:37 Eos # (Auto) 0.2 10^3/uL (0.0-0.8) 04/11/23 23:37 Baso # (Auto) 0.1 10^3/uL (0.0-0.1) 04/11/23 23: Nucleated RBC % (auto) 0 % 04/11/23 23:37 Nucleated RBCs # 0.0 /100WBC 04/11/23 23:37 Sodium 140 mmol/L (136-145) 04/11/23 23:37 Potassium 3.6 mmol/L (3.5-5.1) 04/11/23 23:37 Chloride 104 mmol/L (98-107) 04/11/23 23:37 Carbon Dioxide 26 mmol/L (22-29) 04/11/23 23:37 Anion Gap 13.6 (5-19) 04/11/23 23:37 BUN 11 mg/dL (6-20) 04/11/23 23:37 Creatinine 0.4 mg/dL (0.5-0.9) L 04/11/23 23:37 GFR Calculation 163.9 mL/min (90-130) H 04/11/23 23:37 Glucose 90 mg/dL (65-115) 04/11/23 23:37 Calculated Osmolality 289 mOsm/kg (285-295) 04/11/23 23:37 Calcium 8.9 mg/dL (8.5-10.5) 04/11/23 23:37 Total Bilirubin 0.4 mg/dL (0.15-1.2) 04/11/23 23:37 AST 27 U/L (0-32) 04/11/23 23:37 ALT 21 U/L (0-33) 04/11/23 23:37 Alkaline Phosphatase 115 U/L (35-105) H 04/11/23 23:37 Total Protein 6.9 g/dL (6.6-8.7) 04/11/23 23:37 Albumin 2.8 g/dL (3.5-5.2) L 04/11/23 23:37 Globulin 4.1 g/dL (1.3-4.6) 04/11/23 23:37 Lipase 42 U/L (13-60) 04/11/23 23:37 Discharge Plan Discharge Patient Disposition: Home Clinical Impression: Hematoma of liver, closed Condition: Stable Prescriptions: New hydrocodone-acetaminophen 5-325 mg tablet 1 tab PO Q8H PRN (Reason: pain (scale score 7-10)) Qty: 7 0RF No Action clobetasol 0.05 % ointment 1 applic topical BID 14 Days Qty: 60 1RF Rx Instructions: to affected areas on hands and feet no more than 2 wks/mo prn alternating with triamcinolone carvedilol [Coreg] 12.5 mg tablet 12.5 mg PO BID Rx Instructions: must administer with a meal/food clopidogrel [Plavix] 75 mg tablet 75 mg PO DAILY amlodipine 10 mg tablet 10 mg PO DAILY cholecalciferol (vitamin D3) 1,250 mcg (50,000 unit) capsule 50,000 unit PO .weekly diclofenac sodium 1 % gel 2 g topical QID desonide 0.05 % cream 1 applic topical BID (DME) blood-glucose meter [Accu-Chek Nellie Plus Meter] [facility] See Rx Instructions .Route Rx Instructions: As directed (DME) blood-glucose meter Kit See Rx Instructions .Route Qty: 90 11RF Rx Instructions: As directed 3 times daily gabapentin 600 mg tablet See Rx Instructions PO TID 30 Days Qty: 120 1RF Rx Instructions: 600mg in the a.m. 600mg at noon 1200mg at HS (DME) walker [facility] See Rx Instructions .Route Qty: 1 0RF Rx Instructions: daily as needed promethazine [Phenergan] 25 mg/mL solution 25 mg IM ONCE Qty: 1 0RF ondansetron 4 mg tablet,disintegrating 4 mg translingual Q8H PRN (Reason: nausea and vomiting) promethazine 25 mg tablet 25 mg PO TID PRN (Reason: nausea and vomiting) 10 Days Qty: 30 0RF lorazepam 0.5 mg tablet 0.5 mg PO DAILY PRN (Reason: anxiety) 30 Days Qty: 15 0RF Rx Instructions: No addtional refills until records received pantoprazole 40 mg tablet,delayed release (DR/EC) 40 mg PO BID Qty: 180 8RF Tremfya 100 mg/mL auto-injector 100 mg SUBCUT .q8 weeks Qty: 1 3RF Rx Instructions: Maintenance: inject subcutaneous every 8 weeks following loading dose atorvastatin 40 mg tablet See Rx Instructions .ROUTE .COMPLEX Qty: 30 5RF Dose Instruction: TAKE ONE TABLET BY MOUTH EVERY DAY FOR 30 DAYS Rx Instructions: TAKE ONE TABLET BY MOUTH EVERY DAY FOR 30 DAYS sertraline 100 mg tablet 100 mg PO DAILY 30 Days Qty: 30 0RF Rx Instructions: take with 50mg tab for 150mg daily dosing PT MUST MAKE AN APPOINTMENT FOR ADDITIONAL REFILLS. sertraline 50 mg tablet 50 mg PO DAILY 30 Days Qty: 30 0RF Rx Instructions: take with 100mg tab for 150mg daily dosing\ PT MUST MAKE AN APPOINTMENT FOR ADDITIONAL REFILLS. Discharge Orders: Discharge ED (Routine); Ordered 04/12/23 Ordered By: Yaya Dutton Referrals: WILLIAN Urban FNP [Referring] - Activity Restrictions/Additional Instructions: Follow-up with specialist office in the morning. Return to the ER for new concerns such as high fever, severe pain, or new concerns Coding Level of Care Code ED Medication Administration Professional for Claribel Lima
--- NOTE | 2023-04-11 23:34 | CTR_ITS ---
PROCEDURE INFORMATION: Exam: CT Abdomen And Pelvis With Contrast Exam date and time: 04/11/2023 11:50 PM Age: 58 years old Clinical indication: Abdominal pain; Localized; Right upper quadrant (ruq); Prior surgery; Surgery date: <1 month; Surgery type: Gb at outside facility within the last month. Biliary stent. Mastectomy. Hysterectomy. Patient HX: C/O persistent ruq pain with drainage from surgical site. Large hepatic hematoma noted on CT from 04/02/2023. ; Additional info: Surgical site drainage TECHNIQUE: Imaging protocol: Computed tomography of the abdomen and pelvis with contrast. Radiation optimization: All CT scans at this facility use at least one of these dose optimization techniques: automated exposure control; mA and/or kV adjustment per patient size (includes targeted exams where dose is matched to clinical indication); or iterative reconstruction. Contrast material: OMNI 350; Contrast volume: 100 ml; Contrast route: INTRAVENOUS (IV); REPORTING DATA: Count of CT and Cardiac NM exams in prior 12 months: This patient has received [address] and 0 known cardiac nuclear medicine studies in the 12 months prior to the current study. COMPARISON: CT angio chest w abd pel w con 04/02/2023 1:15 PM RADIATION DOSE METRICS: Total DLP (mGy-cm): 1173.72 FINDINGS: Lungs: Right lower lobe pneumonia. Pleural spaces: Small to moderate right pleural effusion. Coronary arteries: Coronary artery atherosclerotic calcifications. Liver: Again seen is an apparent subcapsular/intraparenchymal hematoma, measuring up to 18 x 13 cm, somewhat more prominent compared to prior exam. Gallbladder and bile ducts: Stent in the common bile duct with pneumobilia. Cholecystectomy with a small amount of edema in the gallbladder fossa. Pancreas: Normal. No ductal dilation. Spleen: Normal. No splenomegaly. Adrenal glands: Normal. No mass. Kidneys and ureters: Normal. No hydronephrosis. Stomach and bowel: Unremarkable. No obstruction. No mucosal thickening. Appendix: No evidence of appendicitis. Intraperitoneal space: Unremarkable. No free air. No significant fluid collection. Vasculature: Unremarkable. No abdominal aortic aneurysm. Lymph nodes: Unremarkable. No enlarged lymph nodes. Urinary bladder: Unremarkable as visualized. Reproductive: Unremarkable as visualized. Bones/joints: Unremarkable. No acute fracture. Soft tissues: Unremarkable. Other findings: CT/CT abdomen pelvis w con* [id number] IMPRESSION: 1. Again seen is an apparent subcapsular/intraparenchymal hematoma, measuring up to 18 x 13 cm, somewhat more prominent compared to prior exam. 2. Stent in the common bile duct with pneumobilia. 3. Cholecystectomy with a small amount of edema in the gallbladder fossa. 4. Small to moderate right pleural effusion. 5. Right lower lobe pneumonia. 6. Coronary artery atherosclerotic calcifications.
[2023-04-11 23:46] LABS: Basophils # 0.1 10^3/uL (0.0-0.1); Basophils % 0.5 %; Eosinophils # 0.2 10^3/uL (0.0-0.8); Eosinophils % 1.5 %; Hematocrit 28.8 % (37.0-47.0); Hemoglobin 8.7 g/dL (11.5-15.3); Lymphocytes # 2.4 10^3/uL (0.8-4.8); Lymphocytes % 17.7 %; Mean Corpuscular HGB Conc 30.2 g/dL (30.0-36.0); Mean Corpuscular Hemoglobin 26.7 pg (28.0-34.0); Mean Corpuscular Volume 88.3 fl (81-99); Mean Platelet Volume 10.4 fL (7.4-10.4); Monocytes # 0.8 10^3/uL (0.2-0.9); Monocytes % 6.2 %; Neutrophils # 9.84 10^3/uL (1.8-7.7); Neutrophils % 73.4 %; Nucleated Red Blood Cells % 0 %; Platelet Count 491 10^3/cmm (130-400); Red Blood Count 3.26 10^6/uL (4.1-5.3); Red Cell Distribution Width 16.4 % (12.1-15.1); White Blood Count 13.4 10^3/uL (4.0-10.0)
[2023-04-11] MEDS: iohexol 350 mg/mL 500 mL Btl (per mL) IV (23:54)
[2023-04-12 00:07] LABS: Alanine Aminotransferase 21 U/L (0-33); Albumin Level 2.8 g/dL (3.5-5.2); Alkaline Phosphatase 115 U/L (35-105); Anion Gap 13.6 (5-19); Aspartate Amino Transferase 27 U/L (0-32); Blood Urea Nitrogen 11 mg/dL (6-20); Calcium 8.9 mg/dL (8.5-10.5); Carbon Dioxide 26 mmol/L (22-29); Chloride 104 mmol/L (98-107); Globulin 4.1 g/dL (1.3-4.6); Glomerular Filtration Rate 163.9 mL/min (90-130); Glucose 90 mg/dL (65-115); Osmolality Calculated 289 mOsm/kg (285-295); Potassium 3.6 mmol/L (3.5-5.1); Sodium 140 mmol/L (136-145); Total Bilirubin 0.4 mg/dL (0.15-1.2); Total Protein 6.9 g/dL (6.6-8.7)
[2023-04-12 00:14] LABS: Lipase 42 U/L (13-60)
[2023-04-12] MEDS: HYDROcodone-acetaminophen 5-325 mg Tablet 1 TAB PO (01:28)
[2023-04-12 01:38] VITALS: BP 152/105; PULSE 102; RESP 18; O2SAT 94
--- NOTE | 2023-04-14 12:50 | DCPLANNER ---
TCM called patient due to no primary care physician - no answer at this time.
== END 2023-04-12 01:40 | disposition home or self-care (01) ==
PROVIDERS: Emergency Provider Nurse Practitioner Family
DX: S36.112A Contusion of liver, initial encounter (principal); X58.XXXA Exposure to other specified factors, initial encounter; D72.829 Elevated white blood cell count, unspecified
CPT/HCPCS: 74177; 80053; 83690; 85025; 99285; Q9967

== ENCOUNTER 2023-06-24 13:33 | Emergency (ER) | payer MEDICARE, SELFPAY ==
[2023-06-24 13:36] VITALS: BP 146/56; PULSE 54; RESP 18; TEMP 36.9; O2SAT 96; BMI 29.9
--- NOTE | 2023-06-24 14:01 | W.ED.GENADLT ---
HPI - General Adult General: Chief complaint: General Medical Stated complaint: Pulled out Drain Time Seen by Provider: 06/24/23 13:52 Source: patient Mode of arrival: ambulatory History of Present Illness: 50-year-old female arrives to the emergency room from [facility]. They are concerned about a drain she has in her right upper quadrant. Earlier this summer patient had a cholecystectomy done complications developed including a large liver hematoma and a laceration of the common bile duct she was ultimately sent to [place] for the drain was put in the liver he did go was resolved and a common bile duct stent was placed she has had 2 visits to the ER since then. They are concerned about the drain in the right upper quadrant now. Patient states has been in place for approximately 10 weeks. She has no pain at this time. Associated symptoms: Deny chest pain, confusion, cough, diaphoresis, decreased appetite, dyspnea, fevers/chills, headache(s), malaise, nausea, rash, palpitations, seizures, short of breath, syncope, vomiting or weakness Review of Systems Const: Denies: malaise or diaphoresis Card: Denies: chest pain, palpitations or syncope Resp: Denies: dyspnea GI: Denies: abdominal pain, nausea or vomiting Skin/Breast: Denies: rash Neuro: Denies: headache(s) or confusion PFSH ED PFSH: Medical History Anxiety Anxiety and depression Arthritis of both shoulder regions Breast cancer screening by mammogram Controlled diabetes mellitus type II without complication CVA (cerebrovascular accident due to intracerebral hemorrhage) Aug 2017 TPA, Oct 2016 TAP, Sep 2016, Aug 2016, and 2013. Dental infection Depression Diabetic eye exam Encounter for BiPAP use counseling Eye exam, routine Fibromyalgia Frequent falls GERD (gastroesophageal reflux disease) History of myocardial infarction November Hypertension IBS (irritable bowel syndrome) Migraines Mixed hyperlipidemia Nausea & vomiting Neuropathy Obstructive sleep apnea Last Sleep study Nov 2020 at [facility] Psoriasis Psoriatic arthritis Tympanic membrane perforation Vitamin D deficiency Surgical History H/O bilateral mastectomy Breast cancer diagnosed at age 18 Found lump in right breast that increased. This surgery was done at [facility]. History of hysterectomy JONATHAN with oopherectomy Age 21. Uterine Cancer S/P tonsillectomy Social History Smoking and tobacco status: never smoked Physical Exam Const: COMMON NORMALS: no acute distress GENERAL APPEARANCE: cooperative and comfortable ORIENTATION/CONSCIOUSNESS: Yes awake, Yes oriented to person, Yes oriented to place and Yes oriented to time HENMT: COMMON NORMALS: normocephalic, atraumatic and hearing grossly normal bilaterally HEAD & SCALP: normocephalic and atraumatic Resp: COMMON NORMALS: normal respiratory effort, No retractions, No use of accessory muscles and clear to auscultation bilaterally AUSCULTATION: clear to auscultation bilaterally Cardio: COMMON NORMALS: regular rate, regular rhythm and No murmurs present (Cardio) RATE: regular rate RHYTHM: regular rhythm GI: COMMON NORMALS: Soft to palpation and No hepatosplenomegaly present AUSCULTATION: Yes normoactive bowel sounds PALPATION: Yes Soft to palpation, No Tenderness to palpation present (GI), No Guarding due to palpation present (GI) and Yes No hepatosplenomegaly present OTHER: Drain in the right upper quadrant bloody bilious drainage Extremity: COMMON NORMALS: normal to inspection, capillary refill normal, no clubbing, cyanosis or edema, no calf tenderness and no pedal edema Neuro: SENSORIUM/ORIENTATION: Yes oriented to person, Yes oriented to place and Yes oriented to time Skin: COMMON NORMALS: no rashes or lesions noted GENERAL SKIN EXAM: no rashes or lesions noted Course Vital Signs: Vital signs: Vital Signs Temperature 98.5 F 06/24/23 13:36 Pulse Rate 54 L 06/24/23 13:36 Respiratory Rate 18 06/24/23 13:36 Blood Pressure 146/56 06/24/23 13:36 Pulse Oximetry 96 06/24/23 13:36 Oxygen Delivery Me thod Room Air 06/24/23 13:36 MDM - General Adult Medical Decision Making Hematoma largely resolved no sign of infection no sign of abscess liver functions and lipase normal will discharge home follow-up with [place] physician group as previously scheduled no need to emergently intervene with the drain at this time. Medical Records I reviewed the patient's medical records. Lab Data I reviewed the patient's lab results. 06/24/23 14:25 06/24/23 14:25 Radiology Impressions Abdomen/Pelvis CT 06/24/23 14:06 IMPRESSION: 1. Interval placement of right lateral subcapsular hepatic drain with near complete resolution of previously large hematoma. 2. Mild pneumobilia status post interval removal of stent. 3. Prior cholecystectomy with mild edema in the gallbladder fossa. 4. Decreased small right pleural effusion with mild compressive atelectasis. 5. Additional chronic and incidental findings as above. Laboratory Results WBC 4.82 10^3/uL (3.29-11.43) 06/24/23 14:25 RBC 4.37 10^6/uL (3.85-5.65) 06/24/23 14:25 Hgb 12.20 g/dL (11.27-16.99) 06/24/23 14:25 Hct 39.1 % (36-47) 06/24/23 14:25 MCV 89.5 fl (85-98) 06/24/23 14:25 MCH 27.9 pg (27-33) 06/24/23 14:25 MCHC 31.2 g/dL (30-55) 06/24/23 14:25 RDW 17.6 % (12.1-15.1) H 06/24/23 14:25 Plt Count 147 10^3/cmm (157-399) L 06/24/23 14:25 MPV 11.9 fL (7.4-10.4) H 06/24/23 14:25 Neut % (Auto) 56.9 % 06/24/23 14:25 Lymph % (Auto) 27.6 % 06/24/23 14:25 [place] % (Auto) 12.4 % 06/24/23 14:25 Eos % (Auto) 2.9 % 06/24/23 14:25 Baso % (Auto) 0.2 % 06/24/23 14:25 Neut # (Auto) 2.74 10^3/uL (1.8-7.7) 06/24/23 14:25 Lymph # (Auto) 1.3 10^3/uL (0.8-4.8) 06/24/23 14:25 [place] # (Auto) 0.6 10^3/uL (0.2-0.9) 06/24/23 14:25 Eos # (Auto) 0.1 10^3/uL (0.0-0.8) 06/24/23 14:25 Baso # (Auto) 0.0 10^3/uL (0.0-0.1) 06/24/23 14:25 Nucleated RBC % (auto) 0 % 06/24/23 14:25 Nucleated RBCs # 0.0 /100WBC 06/24/23 14:25 Sodium 137 mmol/L (136-145) 06/24/23 14:25 Potassium 3.6 mmol/L (3.5-5.1) 06/24/23 14:25 Chloride 100 mmol/L (98-107) 06/24/23 14:25 Carbon Dioxide 27 mmol/L (22-29) 06/24/23 14:25 Anion Gap 13.6 (5-19) 06/24/23 14:25 BUN 11 mg/dL (6-20) 06/24/23 14:25 Creatinine 0.4 mg/dL (0.5-0.9) L 06/24/23 14:25 GFR Calculation 163.9 mL/min (90-130) H 06/24/23 14:25 Glucose 83 mg/dL (65-115) 06/24/23 14:25 Calculated Osmolality 283 mOsm/kg (285-295) L 06/24/23 14:25 Calcium 9.0 mg/dL (8.5-10.5) 06/24/23 14:25 Total Bilirubin 0.3 mg/dL (0.15-1.2) 06/24/23 14:25 AST 22 U/L (0-32) 06/24/23 14:25 ALT 9 U/L (0-33) 06/24/23 14:25 Alkaline Phosphatase 67 U/L (35-105) 06/24/23 14:25 Total Protein 6.1 g/dL (6.6-8.7) L 06/24/23 14:25 Albumin 3.2 g/dL (3.5-5.2) L 06/24/23 14:25 Globulin 2.9 g/dL (1.3-4.6) 06/24/23 14:25 Lipase 11 U/L (13-60) L 06/24/23 14:25 Discharge Plan Discharge Patient Disposition: Home Clinical Impression: Liver hematoma Condition: Stable Prescriptions: No Action clobetasol 0.05 % ointment 1 applic topical BID 14 Days Qty: 60 1RF Rx Instructions: to affected areas on hands and feet no more than 2 wks/mo prn alternating with triamcinolone carvedilol [Coreg] 12.5 mg tablet 12.5 mg PO BID Rx Instructions: must administer with a meal/food clopidogrel [Plavix] 75 mg tablet 75 mg PO DAILY amlodipine 10 mg tablet 10 mg PO DAILY cholecalciferol (vitamin D3) 1,250 mcg (50,000 unit) capsule 50,000 unit PO .weekly diclofenac sodium 1 % gel 2 g topical QID desonide 0.05 % cream 1 applic topical BID (DME) blood-glucose meter [Accu-Chek Nellie Plus Meter] [facility] See Rx Instructions .Route Rx Instructions: As directed (DME) blood-glucose meter Kit See Rx Instructions .Route Qty: 90 11RF Rx Instructions: As directed 3 times daily gabapentin 600 mg tablet See Rx Instructions PO TID 30 Days Qty: 120 1RF Rx Instructions: 600mg in the a.m. 600mg at noon 1200mg at HS (DME) walker [facility] See Rx Instructions .Route Qty: 1 0RF Rx Instructions: daily as needed promethazine [Phenergan] 25 mg/mL solution 25 mg IM ONCE Qty: 1 0RF ondansetron 4 mg tablet,disintegrating 4 mg translingual Q8H PRN (Reason: nausea and vomiting) promethazine 25 mg tablet 25 mg PO TID PRN (Reason: nausea and vomiting) 10 Days Qty: 30 0RF lorazepam 0.5 mg tablet 0.5 mg PO DAILY PRN (Reason: anxiety) 30 Days Qty: 15 0RF Rx Instructions: No addtional refills until records received pantoprazole 40 mg tablet,delayed release (DR/EC) 40 mg PO BID Qty: 180 8RF Tremfya 100 mg/mL auto-injector 100 mg SUBCUT .q8 weeks Qty: 1 3RF Rx Instructions: Maintenance: inject subcutaneous every 8 weeks following loading dose atorvastatin 40 mg tablet See Rx Instructions .ROUTE .COMPLEX Qty: 30 5RF Dose Instruction: TAKE ONE TABLET BY MOUTH EVERY DAY FOR 30 DAYS Rx Instructions: TAKE ONE TABLET BY MOUTH EVERY DAY FOR 30 DAYS sertraline 100 mg tablet 100 mg PO DAILY 30 Days Qty: 30 0RF Rx Instructions: take with 50mg tab for 150mg daily dosing PT MUST MAKE AN APPOINTMENT FOR ADDITIONAL REFILLS. sertraline 50 mg tablet 50 mg PO DAILY 30 Days Qty: 30 0RF Rx Instructions: take with 100mg tab for 150mg daily dosing\ PT MUST MAKE AN APPOINTMENT FOR ADDITIONAL REFILLS. hydrocodone-acetaminophen 5-325 mg tablet 1 tab PO Q8H PRN (Reason: pain (scale score 7-10)) Qty: 7 0RF Discharge Orders: Discharge ED (Routine); Ordered 06/24/23 Ordered By: Nicolas Edwards Discharge Diet: Usual diet Discharge Activity: Increase activity as tolerated Patient Instructions: Opioid Safety, Pain Management Activity Restrictions/Additional Instructions: You were seen today for concerns of the abdominal drain. The drain appears to be in good position hematoma on the CT has resolved. Recommend that you follow-up with your doctors in [place] as previously prescribed the remainder of your labs were normal. No emergent condition appears at this time. Coding Level of Care Code ED Principal Consultant for Claribel Lima
--- NOTE | 2023-06-24 14:06 | CTR_ITS ---
PROCEDURE INFORMATION: Exam: CT Abdomen And Pelvis With Contrast Exam date and time: 06/24/2023 2:41 PM Age: 58 years old Clinical indication: Condition or disease; Gi device placement or management; Other: Drain; Prior surgery; Surgery date: 6+ months; Surgery type: Gb; Additional info: Abd pain recent surgery at [facility] for gallbladder surgery. Patient states she tugged on her drain and it came lose TECHNIQUE: Imaging protocol: Computed tomography of the abdomen and pelvis with contrast. Radiation optimization: All CT scans at this facility use at least one of these dose optimization techniques: automated exposure control; mA and/or kV adjustment per patient size (includes targeted exams where dose is matched to clinical indication); or iterative reconstruction. Contrast material: OMNI 350; Contrast volume: 100 ml; Contrast route: INTRAVENOUS (IV); REPORTING DATA: Count of CT and Cardiac NM exams in prior 12 months: This patient has received 2 known CTs and 0 known cardiac nuclear medicine studies in the 12 months prior to the current study. COMPARISON: CT abdomen pelvis w con* [id number] 04/11/2023 11:50 PM RADIATION DOSE METRICS: Total DLP (mGy-cm): 892.74 FINDINGS: Lungs: Mild right lower lobe compressive atelectasis. Pleural spaces: Small right pleural effusion. Liver: Interval placement of right lateral subcapsular hepatic drain with near complete resolution of subcapsular hematoma with minimal residual remaining. Focal hypodensity adjacent to the fissure for the ligamentum teres likely represents 3rd inflow phenomenon or focal fat. Gallbladder and bile ducts: Interval removal of biliary stent with mild pneumobilia. Prior cholecystectomy with small amount of edema in the gallbladder fossa. Pancreas: Normal without ductal dilatation. Spleen: Normal. Adrenal glands: Normal. No mass. Kidneys and ureters: Normal. No hydronephrosis. Stomach and bowel: No dilatation. No evidence of mucosal thickening. Appendix: Normal. Intraperitoneal space: No free air, free fluid, or well-organized fluid collection. Vasculature: Mild systemic atherosclerotic calcification without abdominal aortic aneurysm. Lymph nodes: No enlarged lymph nodes. Urinary bladder: Urinary bladder is unremarkable. Reproductive: The uterus is surgically absent. Bones/joints: No acute fracture. Trace grade 1 anterolisthesis of L5 on S1 in the setting of bilateral L5 pars interarticularis defects. Mild degenerative changes along the spine. Soft tissues: Mild scattered body wall edema. CT/CT abdomen pelvis w con* [id number] IMPRESSION: 1. Interval placement of right lateral subcapsular hepatic drain with near complete resolution of previously large hematoma. 2. Mild pneumobilia status post interval removal of stent. 3. Prior cholecystectomy with mild edema in the gallbladder fossa. 4. Decreased small right pleural effusion with mild compressive atelectasis. 5. Additional chronic and incidental findings as above.
[2023-06-24 14:36] LABS: Basophils % 0.2 %; Eosinophils # 0.1 10^3/uL (0.0-0.8); Eosinophils % 2.9 %; Hematocrit 39.1 % (36-47); Lymphocytes # 1.3 10^3/uL (0.8-4.8); Lymphocytes % 27.6 %; Mean Corpuscular HGB Conc 31.2 g/dL (30-55); Mean Corpuscular Hemoglobin 27.9 pg (27-33); Mean Corpuscular Volume 89.5 fl (85-98); Mean Platelet Volume 11.9 fL (7.4-10.4); Monocytes # 0.6 10^3/uL (0.2-0.9); Monocytes % 12.4 %; Neutrophils # 2.74 10^3/uL (1.8-7.7); Neutrophils % 56.9 %; Nucleated Red Blood Cells % 0 %; Platelet Count 147 10^3/cmm (157-399); Red Blood Count 4.37 10^6/uL (3.85-5.65); Red Cell Distribution Width 17.6 % (12.1-15.1); White Blood Count 4.82 10^3/uL (3.29-11.43)
[2023-06-24] MEDS: iohexol 350 mg/mL 500 mL Btl (per mL) IV (14:49)
[2023-06-24 14:58] LABS: Alanine Aminotransferase 9 U/L (0-33); Albumin Level 3.2 g/dL (3.5-5.2); Alkaline Phosphatase 67 U/L (35-105); Aspartate Amino Transferase 22 U/L (0-32); Blood Urea Nitrogen 11 mg/dL (6-20); Carbon Dioxide 27 mmol/L (22-29); Chloride 100 mmol/L (98-107); Globulin 2.9 g/dL (1.3-4.6); Glomerular Filtration Rate 163.9 mL/min (90-130); Glucose 83 mg/dL (65-115); Lipase 11 U/L (13-60); Osmolality Calculated 283 mOsm/kg (285-295); Sodium 137 mmol/L (136-145); Total Bilirubin 0.3 mg/dL (0.15-1.2); Total Protein 6.1 g/dL (6.6-8.7)
[2023-06-24 15:08] LABS: Anion Gap 13.6 (5-19); Potassium 3.6 mmol/L (3.5-5.1)
--- NOTE | 2023-06-29 14:29 | DCPLANNER ---
truck leasing manager called patient due to no primary care physician - no answer at this time.
--- NOTE | 2023-07-05 11:49 | DCPLANNER ---
fitness and wellness manager called patient due to no primary care physician - called phone number [phone] - phone number is not in service.
== END 2023-06-24 15:26 | disposition home or self-care (01) ==
PROVIDERS: Emergency Provider Family Medicine
DX: K76.89 Other specified diseases of liver (principal); Z79.02 Long term (current) use of antithrombotics/antiplatelets; E11.9 Type 2 diabetes mellitus without complications; Z86.73 Personal history of transient ischemic attack (TIA), and cerebral infarction without residual deficits; I10 Essential (primary) hypertension; E78.2 Mixed hyperlipidemia
CPT/HCPCS: 74177; 80053; 83690; 85025; 99285; Q9967

== ENCOUNTER 2024-01-02 20:48 | Emergency (ER) | payer MEDICARE, SELFPAY ==
[2024-01-02 21:05] VITALS: BP 133/83; PULSE 57; RESP 16; TEMP 36.4; O2SAT 98
[2024-01-02 21:49] LABS: Basophils % 0.5 %; Eosinophils # 0.2 10^3/uL (0.0-0.8); Eosinophils % 2.7 %; Hematocrit 36.8 % (36-47); Lymphocytes # 2.4 10^3/uL (0.8-4.8); Lymphocytes % 36.4 %; Mean Corpuscular HGB Conc 32.6 g/dL (30-55); Mean Corpuscular Hemoglobin 30.9 pg (27-33); Mean Corpuscular Volume 94.8 fl (85-98); Mean Platelet Volume 10.4 fL (7.4-10.4); Monocytes # 0.3 10^3/uL (0.2-0.9); Monocytes % 5.1 %; Neutrophils # 3.65 10^3/uL (1.8-7.7); Neutrophils % 55.1 %; Nucleated Red Blood Cells % 0 %; Platelet Count 198 10^3/cmm (157-399); Red Blood Count 3.88 10^6/uL (3.85-5.65); Red Cell Distribution Width 12.8 % (12.1-15.1); White Blood Count 6.62 10^3/uL (3.29-11.43)
--- NOTE | 2024-01-02 21:53 | CTR_ITS ---
PROCEDURE INFORMATION: Exam: CT Abdomen And Pelvis With Contrast Exam date and time: 01/02/2024 10:20 PM Age: 58 years old Clinical indication: Abdominal pain; Localized; Right; Prior surgery; Surgery date: 6+ months; Surgery type: Patient says she had gallbladder surger last February and has pain on and off in her side ever since. HX of hysterectomy and double mastectomy; Additional info: Rlq pain/hx of multiple abd surgeries TECHNIQUE: Imaging protocol: Computed tomography of the abdomen and pelvis with contrast. Radiation optimization: All CT scans at this facility use at least one of these dose optimization techniques: automated exposure control; mA and/or kV adjustment per patient size (includes targeted exams where dose is matched to clinical indication); or iterative reconstruction. Contrast material: OMNI 350; Contrast volume: 100 ml; Contrast route: INTRAVENOUS (IV); COMPARISON: CT abdomen pelvis w con* [id number] 06/24/2023 2:41 PM RADIATION DOSE METRICS: Total DLP (mGy-cm): 885 FINDINGS: Lungs: Mild dependent changes in the posterior lower lobes. Heart: Borderline cardiomegaly. Trace pericardial fluid is likely physiologic. Liver: Linear hypodensity in the posterior lobe of the liver, consistent with sequela of prior fluid collection. There is a hyperenhancing tubular structure within the area of abnormality consistent with a vessel which may be normal or abnormal. This finding is not definitively present on the prior study though a drain in this region limits evaluation. No liver masses are identified. Gallbladder and bile ducts: The gallbladder is surgically absent. There is no ductal dilatation. Pneumobilia is noted. Pancreas: The pancreas is normal. Spleen: The spleen is normal. Adrenal glands: The adrenal glands are normal. Kidneys and ureters: There is normal enhancement of the kidneys. No renal calcifications are identified. There is no hydronephrosis. There are a few subcentimeter renal low-density lesions which are too small for accurate characterization. Stomach and bowel: There is no large or small bowel obstruction. There is no evidence of bowel wall thickening. [id number] retained colonic stool. Appendix: A normal appendix is identified. Intraperitoneal space: No inflammatory changes are identified. There is no free fluid or fluid collection seen. There is no pneumoperitoneum. Vasculature: Atherosclerotic calcifications of the aorta are present. No aneurysm is identified. Lymph nodes: There are no enlarged retroperitoneal or mesenteric lymph nodes. Urinary bladder: The bladder is unremarkable. Reproductive: The uterus is absent. Bones/joints: No acute osseous abnormalities are seen. Soft tissues: The soft tissues are within normal limits. CT/CT abdomen pelvis w con* [id number] IMPRESSION: 1. No acute intra-abdominal or pelvic process. 2. Linear hypodensity in the right posterior lobe of the liver consistent with sequela of prior abscess/hematoma. Linear hyperdensity traversing this region may represent an abnormal vessel. Recommend nonemergent multiphase CT of the liver. 3. Other nonemergent findings above.
--- NOTE | 2024-01-02 21:54 | ED_ITS ---
Documented by User: LANA Henson 01/02/24 23:37 HPI - Abdominal Pain 2 General: Chief Complaint: Abdominal Pain Stated Complaint: Abd pain Time Seen by Provider: 01/02/24 21:16 Source: patient Mode of arrival: ambulatory Limitations: no limitations History of Present Illness: Patient is a 58-year-old female with past medical history of IA, CVA, GERD, and IBS who presents to the emergency department [facility] due to right lower quadrant abdominal pain onset 2 days. Patient states she has a significant history of abdominal surgeries, stating that last spring she had a botched cholecystectomy that left her hospitalized multiple times over a 6-month period. She states that she had multiple abscess formations and drainages, and was last discharged in August. She notes the onset of pain 2 days ago prompted her to visit her primary doctor, where she had an x-ray obtained but has not received results. She is now reporting associated nausea and diarrhea. The pain is sharp and she states that she feels a firm lump under the skin. The pain is worsened with deep breaths and coughing. She denies any fevers, vomiting, syncope, dizziness, lightheadedness, chest pain, shortness of breath, or any other symptoms. MD elicited complaint: abdominal pain Pertinent past history: myocardial infarction and other ( Multiple abdominal surgeries ) Onset (ago): day(s) (2) Pain Consistency: constant Location: RLQ Severity: severe Quality: sharp Radiation: none Migration to: no migration Exacerbating factors: other (Coughing/deep breathing) Relieving factors: nothing Associated Symptoms: Reports diarrhea and nausea; Denies chills, constipation, dysuria, fever(s), hematochezia, hematemesis, melena, syncope and vomiting Review of Systems 2 General: Reports: 10 or more systems reviewed and unremarkable except in HPI and below Const: Denies: fever(s), chills, change in appetite, change in weight or diaphoresis ENMT: Denies: throat pain or hoarseness Card: Denies: chest pain, palpitations, lightheadedness or syncope Resp: Denies: dyspnea, productive cough or wheezing GI: Reports: abdominal pain, nausea and diarrhea; Denies: vomiting, hematemesis, constipation, hematochezia or melena : Denies: flank pain, difficulty voiding, dysuria, urinary frequency or urinary urgency Musc: Denies: neck pain or back pain Skin/Breast: Denies: rash or new lesions Neuro: Denies: headache(s) or dizziness PFSH ED 2 PFSH: Medical History Nausea & vomiting Frequent falls Breast cancer screening by mammogram Controlled diabetes mellitus type II without complication Dental infection Mixed hyperlipidemia Vitamin D deficiency Diabetic eye exam Eye exam, routine GERD (gastroesophageal reflux disease) Anxiety and depression Tympanic membrane perforation Arthritis of both shoulder regions IBS (irritable bowel syndrome) Hypertension Depression Anxiety Neuropathy Psoriatic arthritis Psoriasis Fibromyalgia Migraines Obstructive sleep apnea Last Sleep study Nov 2020 at [facility] Encounter for BiPAP use counseling CVA (cerebrovascular accident due to intracerebral hemorrhage) Aug 2017 TPA, Oct 2016 TAP, Sep 2016, Aug 2016, and 2013. History of myocardial infarction November Surgical History S/P tonsillectomy History of hysterectomy JONATHAN with oopherectomy Age 21. Uterine Cancer H/O bilateral mastectomy Breast cancer diagnosed at age 18 Found lump in right breast that increased. This surgery was done at [place]. Social History Smoking and tobacco/nicotine status: never used tobacco/nicotine Physical Exam 2 Const: COMMON NORMALS: no acute distress, average body habitus, patient oriented x3, no limitations, healthy appearing, alert and well nourished G ENERAL APPEARANCE: cooperative and comfortable ORIENTATION/CONSCIOUSNESS: Yes awake HENMT: COMMON NORMALS: normocephalic, atraumatic, hearing grossly normal bilaterally, external ears normal, Normal external nose present, Normal nasal mucous membranes and turbinates present and moist oral mucous membranes HEAD & SCALP: normocephalic and atraumatic NOSE: Normal external nose present and Normal nasal mucous membranes and turbinates present EXTERNAL EAR: Yes external ears normal Eye: COMMON NORMALS: Equal, round and reactive pupils present, EOMs intact bilaterally, conjunctivae normal and normal visual howell by confrontation C ONJUNCTIVA: Yes conjunctivae normal PUPIL: Yes Equal, round and reactive pupils present Neck/C-Spine: COMMON NORMALS: full ROM, supple, no meningeal signs and no JVD Resp: COMMON NORMALS: normal respiratory effort, No retractions, No use of accessory muscles and clear to auscultation bilaterally AUSCULTATION: clear to auscultation bilaterally, no crackles, no rales, no rhonchi and no wheezes Cardio: COMMON NORMALS: no JVD, regular rate, regular rhythm, S1 normal heart sound present, S2 normal heart sound present, No gallops present (Cardio), No clicks present (Cardio), No murmurs present (Cardio), No rub (Cardio) and Peripheral pulses 2+ throughout RATE: regular rate RHYTHM: regular rhythm HEART SOUNDS: S1 normal heart sound present and S2 normal heart sound present PERIPHERAL PULSES: Peripheral pulses 2+ throughout GI: COMMON NORMALS: Normal to inspection, nondistended, normoactive bowel sounds present, Soft to palpation and No hepatosplenomegaly present A USCULTATION: Yes normoactive bowel sounds PALPATION: Yes Soft to palpation, Yes Tenderness to palpation present (GI) Details: RLQ, No Guarding due to palpation present (GI), No Rigid due to palpation, Yes No hepatosplenomegaly present, No Palpable mass present, No Ascites present and No Abdominal wall crepitus present RECTAL EXAM: deferred Extremity: COMMON NORMALS: normal to inspection and full ROM Neuro: COMMON NORMALS: patient oriented x3, moves all extremities, no focal motor deficits and no sensory deficits noted SENSORIUM/ORIENTATION: Yes alert MENINGEAL SIGNS: Yes no meningeal signs Psych: COMMON NORMALS: mental status grossly normal, cooperative and speech normal SPEECH: Yes normal speech Skin: COMMON NORMALS: no rashes or lesions noted GENERAL SKIN EXAM: no rashes or lesions noted Course 2 Vital Signs: Vital signs: Vital Signs Temperature 97.6 F 01/02/24 21:05 Pulse Rate 52 L 01/02/24 23:33 Respiratory Rate 16 01/02/24 23:33 Blood Pressure 174/84 01/02/24 23:08 Pulse Oximetry 96 01/02/24 23:33 MDM - Abdominal Pain Medical Decision Making This patient was seen and evaluated in the emergency department today for right lower quadrant pain for the past 3 days. Patient notes a significant past surgical history resulting from a complicated cholecystectomy. On examination, patient is tender in the right lower quadrant with no obvious palpation of a mass. Patient states that sometimes she is able to reduce it and that it moves. Otherwise her examination is unremarkable. She has normal bowel sounds and her vitals otherwise normal. Laboratory tests negative for any signs of acute infection or other abnormalities. Lipase normal, and UA is pending on discharge as she reports no urinary symptoms. I obtained a CT abdomen pelvis with contrast, which showed no acute intra-abdominal or pelvic process. There were some old findings consistent with prior abscess formation, and outpatient multiphase liver CT is recommended. I informed patient of this, and informed her to follow-up with her primary care provider for any further workup. She can continue to take her Compazine for nausea and Tylenol/ibuprofen for any pain. I gave her return precautions and she will be discharged back into the custody of [facility]. Medical Records I reviewed the patient's medical records. Lab Data I reviewed the patient's lab results. 01/02/24 21:37 01/02/24 21:37 Labs/Radiology: Radiology Impressions Abdomen/Pelvis CT 01/02/24 21:53 IMPRESSION: 1. No acute intra-abdominal or pelvic process. 2. Linear hypodensity in the right posterior lobe of the liver consistent with sequela of prior abscess/hematoma. Linear hyperdensity traversing this region may represent an abnormal vessel. Recommend nonemergent multiphase CT of the liver. 3. Other nonemergent findings above. Laboratory Results WBC 6.62 10^3/uL (3.29-11.43) 01/02/24 21:37 RBC 3.88 10^6/uL (3.85-5.65) 01/02/24 21:37 Hgb 12.00 g/dL (11.27-16.99) 01/02/24 21:37 Hct 36.8 % (36-47) 01/02/24 21:37 MCV 94.8 fl (85-98) 01/02/24 21:37 MCH 30.9 pg (27-33) 01/02/24 21:37 MCHC 32.6 g/dL (30-55) 01/02/24 21:37 RDW 12.8 % (12.1-15.1) 01/02/24 21:37 Plt Count 198 10^3/cmm (157-399) 01/02/24 21:37 MPV 10.4 fL (7.4-10.4) 01/02/24 21:37 Neut % (Auto) 55.1 % 01/02/24 21:37 Lymph % (Auto) 36.4 % 01/02/24 21:37 [place] % (Auto) 5.1 % 01/02/24 21:37 Eos % (Auto) 2.7 % 01/02/24 21:37 Baso % (Auto) 0.5 % 01/02/24 21:37 Neut # (Auto) 3.65 10^3/uL (1.8-7.7) 01/02/24 21:37 Lymph # (Auto) 2.4 10^3/uL (0.8-4.8) 01/02/24 21:37 [place] # (Auto) 0.3 10^3/uL (0.2-0.9) 01/02/24 21:37 Eos # (Auto) 0.2 10^3/uL (0.0-0.8) 01/02/24 21:37 Baso # (Auto) 0.0 10^3/uL (0.0-0.1) 01/02/24 21:37 Nucleated RBC % (auto) 0 % 01/02/24 21:37 Nucleated RBCs # 0.0 /100WBC 01/02/24 21:37 Sodium 141 mmol/L (136-145) 01/02/24 21:37 Potassium 4.2 mmol/L (3.5-5.1) 01/02/24 21:37 Chloride 104 mmol/L (98-107) 01/02/24 21:37 Carbon Dioxide 30 mmol/L (22-29) H 01/02/24 21:37 Anion Gap 11.2 (5-19) 01/02/24 21:37 BUN 24 mg/dL (6-20) H 01/02/24 21:37 Creatinine 0.6 mg/dL (0.5-0.9) 01/02/24 21:37 GFR Calculation 102.7 mL/min (90-130) 01/02/24 21:37 Glucose 113 mg/dL (65-115) 01/02/24 21:37 Calculated Osmolality 297 mOsm/kg (285-295) H 01/02/24 21:37 Calcium 9.2 mg/dL (8.5-10.5) 01/02/24 21:37 Total Bilirubin 0.3 mg/dL (0.15-1.2) 01/02/24 21:37 AST 14 U/L (0-32) 01/02/24 21:37 ALT 17 U/L (0-33) 01/02/24 21:37 Alkaline Phosphatase 85 U/L (35-105) 01/02/24 21:37 Total Protein 6.7 g/dL (6.6-8.7) 01/02/24 21:37 Albumin 3.8 g/dL (3.5-5.2) 01/02/24 21:37 Globulin 2.9 g/dL (1.3-4.6) 01/02/24 21:37 Lipase 22 U/L (13-60) 01/02/24 21:37 Urine Color Yellow (Yellow) 01/02/24 23:24 Urine Appearance Clear (CLEAR) 01/02/24 23:24 Urine pH 7 (5-7) 01/02/24 23:24 Ur Specific [place] 1.015 (1.005-1.030) 01/02/24 23:24 Urine Protein Neg (Negative) 01/02/24 23:24 Urine Glucose (UA) Norm (Normal) 01/02/24 23:24 Urine Ketones Negative (Negative) 01/02/24 23:24 Urine Blood Neg (Negative) 01/02/24 23:24 Urine Nitrate Negative (Negative) 01/02/24 23:24 Urine Bilirubin Neg (Negative) 01/02/24 23:24 Urine Urobilinogen Norm mg/dL (Negative) 01/02/24 23:24 Ur Leukocyte Esterase 1+ (Negative) H 01/02/24 23:24 Urine RBC None /hpf (0-2) 01/02/24 23:24 Urine WBC 0-4 /hpf (0-5) H 01/02/24 23:24 Ur Squamous Epith Cells 0-4 /hpf (0-5) H 01/02/24 23:24 Amorphous Sediment Not Reportable 01/02/24 23:24 Urine Bacteria Trace /hpf (NONE) 01/02/24 23:24 Urine Mucus Trace /hpf 01/02/24 23:24 All radiology interpretation(s) finalized by discharge Discharge Plan Discharge Patient Disposition: Home Clinical Impression: Abdominal pain Qualifiers: Abdominal location: right lower quadrant Qualified Code(s): R10.31 - Right lower quadrant pain Condition: Stable Prescriptions: No Action clobetasol 0.05 % ointment 1 applic topical BID 14 Days Qty: 60 1RF Rx Instructions: to affected areas on hands and feet no more than 2 wks/mo prn alternating with triamcinolone carvedilol [Coreg] 12.5 mg tablet 12.5 mg PO BID Rx Instructions: must administer with a meal/food clopidogrel [Plavix] 75 mg tablet 75 mg PO DAILY amlodipine 10 mg tablet 10 mg PO DAILY cholecalciferol (vitamin D3) 1,250 mcg (50,000 unit) capsule 50,000 unit PO .weekly diclofenac sodium 1 % gel 2 g topical QID desonide 0.05 % cream 1 applic topical BID (DME) blood-glucose meter [Accu-Chek [place] Plus Meter[place] [facility] [place] .Route Rx Instructions: As directed (DME) blood-glucose meter Kit See Rx Instructions .Route Qty: 90 11RF Rx Instructions: As directed 3 times daily gabapentin 600 mg tablet See Rx Instructions PO TID 30 Days Qty: 120 1RF Rx Instructions: 600mg in the a.m. 600mg at noon 1200mg at HS (DME) walker Misc See Rx Instructions .Route Qty: 1 0RF Rx Instructions: daily as needed promethazine [Phenergan] 25 mg/mL solution 25 mg IM ONCE Qty: 1 0RF ondansetron 4 mg tablet,disintegrating 4 mg translingual Q8H PRN (Reason: nausea and vomiting) promethazine 25 mg tablet 25 mg PO TID PRN (Reason: nausea and vomiting) 10 Days Qty: 30 0RF lorazepam 0.5 mg tablet 0.5 mg PO DAILY PRN (Reason: anxiety) 30 Days Qty: 15 0RF Rx Instructions: No addtional refills until records received pantoprazole 40 mg tablet,delayed release (DR/EC) 40 mg PO BID Qty: 180 8RF Tremfya 100 mg/mL auto-injector 100 mg SUBCUT .q8 weeks Qty: 1 3RF Rx Instructions: Maintenance: inject subcutaneous every 8 weeks following loading dose atorvastatin 40 mg tablet See Rx Instructions .ROUTE .COMPLEX Qty: 30 5RF Dose Instruction: TAKE ONE TABLET BY MOUTH EVERY DAY FOR 30 DAYS Rx Instructions: TAKE ONE TABLET BY MOUTH EVERY DAY FOR 30 DAYS sertraline 100 mg tablet 100 mg PO DAILY 30 Days Qty: 30 0RF Rx Instructions: take with 50mg tab for 150mg daily dosing PT MUST MAKE AN APPOINTMENT FOR ADDITIONAL REFILLS. sertraline 50 mg tablet 50 mg PO DAILY 30 Days Qty: 30 0RF Rx Instructions: take with 100mg tab for 150mg daily dosing\ PT MUST MAKE AN APPOINTMENT FOR ADDITIONAL REFILLS. hydrocodone-acetaminophen 5-325 mg tablet 1 tab PO Q8H PRN (Reason: pain (scale score 7-10)) Qty: 7 0RF Discharge Orders: Discharge ED (Routine); Ordered 01/02/24 Ordered By: Hilario Lockhart Discharge Diet: Usual diet Discharge Activity: Increase activity as tolerated Patient Instructions: Abdominal Pain (ED) Activity Restrictions/Additional Instructions: Tylenol or ibuprofen for pain. Follow-up with your primary care provider to discuss ER visit and any further testing. Continue to take your nausea medication as needed. Return if you develop any new or worsening symptoms. Coding Level of Care Code ED Probation Agent for Chg Fwd Documented by User: Nicolas Edwards DO 01/03/24 06:03 HPI - Abdominal Pain 2 General: Chief Complaint: Abdominal Pain Stated Complaint: Abd pain Time Seen by Provider: 01/02/24 21:16 [facility] ED 2 PFS: Medical History Nausea & vomiting Frequent falls Breast cancer screening by mammogram Controlled diabetes mellitus type II without complication Dental infection Mixed hyperlipidemia Vitamin D deficiency Diabetic eye exam Eye exam, routine GERD (gastroesophageal reflux disease) Anxiety and depression Tympanic membrane perforation Arthritis of both shoulder regions IBS (irritable bowel syndrome) Hypertension Depression Anxiety Neuropathy Psoriatic arthritis Psoriasis Fibromyalgia Migraines Obstructive sleep apnea Last Sleep study Nov 2020 at [facility] Encounter for BiPAP use counseling CVA (cerebrovascular accident due to intracerebral hemorrhage) Aug 2017 TPA, Oct 2016 TAP, Sep 2016, Aug 2016, and 2013. History of myocardial infarction November Surgical History S/P tonsillectomy History of hysterectomy JONATHAN with oopherectomy Age 21. Uterine Cancer H/O bilateral mastectomy Breast cancer diagnosed at age 18 Found lump in right breast that increased. This surgery was done at [place]. Social History Smoking and tobacco/nicotine status: never used tobacco/nicotine Course 2 Vital Signs: Vital signs: Vital Signs Temperature 97.6 F 01/02/24 21:05 Pulse Rate 52 L 01/02/24 23:33 Respiratory Rate 16 01/02/24 23:33 Blood Pressure 174/84 01/02/24 23:08 Pulse Oximetry 96 01/02/24 23:33 MDM - Abdominal Pain Medical Decision Making This patient was seen and evaluated in the emergency department today for right lower quadrant pain for the past 3 days. Patient notes a significant past surgical history resulting from a complicated cholecystectomy. On examination, patient is tender in the right lower quadrant with no obvious palpation of a mass. Patient states that sometimes she is able to reduce it and that it moves. Otherwise her examination is unremarkable. She has normal bowel sounds and her vitals otherwise normal. Laboratory tests negative for any signs of acute infection or other abnormalities. Lipase normal, and UA is pending on discharge as she reports no urinary symptoms. I obtained a CT abdomen pelvis with contrast, which showed no acute intra-abdominal or pelvic process. There were some old findings consistent with prior abscess formation, and outpatient multiphase liver CT is recommended. I informed patient of this, and informed her to follow-up with her primary care provider for any further workup. She can continue to take her Compazine for nausea and Tylenol/ibuprofen for any pain. I gave her return precautions and she will be discharged back into the [facility]. Chart reviewed Lab Data 01/02/24 21:37 01/02/24 21:37 Labs/Radiology: Radiology Impressions Abdomen/Pelvis CT 01/02/24 21:53 IMPRESSION: 1. No acute intra-abdominal or pelvic process. 2. Linear hypodensity in the right posterior lobe of the liver consistent with sequela of prior abscess/hematoma. Linear hyperdensity traversing this region may represent an abnormal vessel. Recommend nonemergent multiphase CT of the liver. 3. Other nonemergent findings above. Laboratory Results WBC 6.62 10^3/uL (3.29-11.43) 01/02/24 21:37 RBC 3.88 10^6/uL (3.85-5.65) 01/02/24 21:37 Hgb 12.00 g/dL (11.27-16.99) 01/02/24 21: Hct 36.8 % (36-47) 01/02/24 21: MCV 94.8 fl (85-98) 01/02/24 21: MCH 30.9 pg (27-33) 01/02/24 21: MCHC 32.6 g/dL (30-55) 01/02/24 21: RDW 12.8 % (12.1-15.1) 01/02/24 21: Plt Count 198 10^3/cmm (157-399) 01/02/24 21:37 MPV 10.4 fL (7.4-10.4) 01/02/24 21:37 Neut % (Auto) 55.1 % 01/02/24 21:37 Lymph % (Auto) 36.4 % 01/02/24 21:37 [place] % (Auto) 5.1 % 01/02/24 21:37 Eos % (Auto) 2.7 % 01/02/24 21:37 Baso % (Auto) 0.5 % 01/02/24 21:37 Neut # (Auto) 3.65 10^3/uL (1.8-7.7) 01/02/24 21:37 Lymph # (Auto) 2.4 10^3/uL (0.8-4.8) 01/02/24 21:37 [place] # (Auto) 0.3 10^3/uL (0.2-0.9) 01/02/24 21:37 Eos # (Auto) 0.2 10^3/uL (0.0-0.8) 01/02/24 21:37 Baso # (Auto) 0.0 10^3/uL (0.0-0.1) 01/02/24 21:37 Nucleated RBC % (auto) 0 % 01/02/24 21:37 Nucleated RBCs # 0.0 /100WBC 01/02/24 21:37 Sodium 141 mmol/L (136-145) 01/02/24 21:37 Potassium 4.2 mmol/L (3.5-5.1) 01/02/24 21:37 Chloride 104 mmol/L (98-107) 01/02/24 21:37 Carbon Dioxide 30 mmol/L (22-29) H 01/02/24 21:37 Anion Gap 11.2 (5-19) 01/02/24 21:37 BUN 24 mg/dL (6-20) H 01/02/24 21:37 Creatinine 0.6 mg/dL (0.5-0.9) 01/02/24 21:37 GFR Calculation 102.7 mL/min (90-130) 01/02/24 21:37 Glucose 113 mg/dL (65-115) 01/02/24 21:37 Calculated Osmolality 297 mOsm/kg (285-295) H 01/02/24 21:37 Calcium 9.2 mg/dL (8.5-10.5) 01/02/24 21:37 Total Bilirubin 0.3 mg/dL (0.15-1.2) 01/02/24 21:37 AST 14 U/L (0-32) 01/02/24 21:37 ALT 17 U/L (0-33) 01/02/24 21:37 Alkaline Phosphatase 85 U/L (35-105) 01/02/24 21:37 Total Protein 6.7 g/dL (6.6-8.7) 01/02/24 21:37 Albumin 3.8 g/dL (3.5-5.2) 01/02/24 21:37 Globulin 2.9 g/dL (1.3-4.6) 01/02/24 21:37 Lipase 22 U/L (13-60) 01/02/24 21:37 Urine Color Yellow (Yellow) 01/02/24 23:24 Urine Appearance Clear (CLEAR) 01/02/24 23:24 Urine pH 7 (5-7) 01/02/24 23:24 Ur Specific [place] 1.015 (1.005-1.030) 01/02/24 23:24 Urine Protein Neg (Negative) 03/05/24 23:24 Urine Glucose (UA) Norm (Normal) 01/02/24 23:24 Urine Ketones Negative (Negative) 01/02/24 23:24 Urine Blood Neg (Negative) 01/02/24 23:24 Urine Nitrate Negative (Negative) 01/02/24 23:24 Urine Bilirubin Neg (Negative) 01/02/24 23:24 Urine Urobilinogen Norm mg/dL (Negative) 01/02/24 23:24 Ur Leukocyte Esterase 1+ (Negative) H 01/02/24 23:24 Urine RBC None /hpf (0-2) 01/02/24 23:24 Urine WBC 0-4 /hpf (0-5) H 01/02/24 23:24 Ur Squamous Epith Cells 0-4 /hpf (0-5) H 01/02/24 23:24 Amorphous Sediment Not Reportable 01/02/24 23:24 Urine Bacteria Trace /hpf (NONE) 01/02/24 23:24 Urine Mucus Trace /hpf 01/02/24 23:24 Discharge Plan Discharge Patient Disposition: Home Clinical Impression: Abdominal pain Qualifiers: Abdominal location: right lower quadrant Qualified Code(s): R10.31 - Right lower quadrant pain Condition: Stable Prescriptions: No Action clobetasol 0.05 % ointment 1 applic topical BID 14 Days Qty: 60 1RF Rx Instructions: to affected areas on hands and feet no more than 2 wks/mo prn alternating with triamcinolone carvedilol [Coreg] 12.5 mg tablet 12.5 mg PO BID Rx Instructions: must administer with a meal/food clopidogrel [Plavix] 75 mg tablet 75 mg PO DAILY amlodipine 10 mg tablet 10 mg PO DAILY cholecalciferol (vitamin D3) 1,250 mcg (50,000 unit) capsule 50,000 unit PO .weekly diclofenac sodium 1 % gel 2 g topical QID desonide 0.05 % cream 1 applic topical BID (DME) blood-glucose meter [Accu-Chek [place] Plus Meter[place] [facility] [place] .Route Rx Instructions: As directed (DME) blood-glucose meter Kit See Rx Instructions .Route Qty: 90 11RF Rx Instructions: As directed 3 times daily gabapentin 600 mg tablet See Rx Instructions PO TID 30 Days Qty: 120 1RF Rx Instructions: 600mg in the a.m. 600mg at noon 1200mg at HS (DME) walker Misc See Rx Instructions .Route Qty: 1 0RF Rx Instructions: daily as needed promethazine [Phenergan] 25 mg/mL solution 25 mg IM ONCE Qty: 1 0RF ondansetron 4 mg tablet,disintegrating 4 mg translingual Q8H PRN (Reason: nausea and vomiting) promethazine 25 mg tablet 25 mg PO TID PRN (Reason: nausea and vomiting) 10 Days Qty: 30 0RF lorazepam 0.5 mg tablet 0.5 mg PO DAILY PRN (Reason: anxiety) 30 Days Qty: 15 0RF Rx Instructions: No addtional refills until records received pantoprazole 40 mg tablet,delayed release (DR/EC) 40 mg PO BID Qty: 180 8RF Tremfya 100 mg/mL auto-injector 100 mg SUBCUT .q8 weeks Qty: 1 3RF Rx Instructions: Maintenance: inject subcutaneous every 8 weeks following loading dose atorvastatin 40 mg tablet See Rx Instructions .ROUTE .COMPLEX Qty: 30 5RF Dose Instruction: TAKE ONE TABLET BY MOUTH EVERY DAY FOR 30 DAYS Rx Instructions: TAKE ONE TABLET BY MOUTH EVERY DAY FOR 30 DAYS sertraline 100 mg tablet 100 mg PO DAILY 30 Days Qty: 30 0RF Rx Instructions: take with 50mg tab for 150mg daily dosing PT MUST MAKE AN APPOINTMENT FOR ADDITIONAL REFILLS. sertraline 50 mg tablet 50 mg PO DAILY 30 Days Qty: 30 0RF Rx Instructions: take with 100mg tab for 150mg daily dosing\ PT MUST MAKE AN APPOINTMENT FOR ADDITIONAL REFILLS. hydrocodone-acetaminophen 5-325 mg tablet 1 tab PO Q8H PRN (Reason: pain (scale score 7-10)) Qty: 7 0RF Discharge Orders: Discharge ED (Routine); Ordered 01/02/24 Ordered By: Hilario Lockhart Discharge Diet: Usual diet Discharge Activity: Increase activity as tolerated Patient Instructions: Abdominal Pain (ED) Activity Restrictions/Additional Instructions: Tylenol or ibuprofen for pain. Follow-up with your primary care provider to discuss ER visit and any further testing. Continue to take your nausea medication as needed. Return if you develop any new or worsening symptoms. Coding Level of Care Code ED Probation Agent for Claribel [place]
[2024-01-02 22:14] LABS: Alanine Aminotransferase 17 U/L (0-33); Albumin Level 3.8 g/dL (3.5-5.2); Alkaline Phosphatase 85 U/L (35-105); Anion Gap 11.2 (5-19); Aspartate Amino Transferase 14 U/L (0-32); Blood Urea Nitrogen 24 mg/dL (6-20); Calcium 9.2 mg/dL (8.5-10.5); Carbon Dioxide 30 mmol/L (22-29); Chloride 104 mmol/L (98-107); Creatinine Clr Calc Pharmacy 109.6278; Globulin 2.9 g/dL (1.3-4.6); Glomerular Filtration Rate 102.7 mL/min (90-130); Glucose 113 mg/dL (65-115); Lipase 22 U/L (13-60); Osmolality Calculated 297 mOsm/kg (285-295); Potassium 4.2 mmol/L (3.5-5.1); Sodium 141 mmol/L (136-145); Total Bilirubin 0.3 mg/dL (0.15-1.2); Total Protein 6.7 g/dL (6.6-8.7)
[2024-01-02] MEDS: iohexol 350 mg/mL 500 mL Btl (per mL) IV (22:32)
[2024-01-02 23:08] VITALS: BP 174/84; PULSE 50; RESP 16; O2SAT 96
[2024-01-02 23:33] VITALS: PULSE 52; RESP 16; O2SAT 96
[2024-01-02 23:47] LABS: Add Urine Microscopic? YES; Bilirubin Urine Neg (Negative); Blood Urine Neg (Negative); Glucose Urine UA Norm (Normal); Ketones Urine Negative (Negative); Nitrate Urine Negative (Negative); Protein Urine Neg (Negative); Specific Gravity, Urine 1.015 (1.005-1.030); Urine Appearance Clear (CLEAR); Urine Color Yellow (Yellow); Urobilinogen Urine Norm (Negative); pH Urine 7 (5-7)
[2024-01-02 23:48] LABS: Add Urine Culture? No; Bacteria Urine TRACE /hpf; Leukocyte Esterase Urine 1+ (Negative); Mucus Urine TRACE /hpf; Squamous Epithelial Cell Urine 0-4 /hpf (0-5); WBC Urine 0-4 /hpf (0-5)
== END 2024-01-02 23:42 | disposition home or self-care (01) ==
PROVIDERS: Emergency Medicine; Emergency Provider Physician Assistant
DX: R10.31 Right lower quadrant pain (principal); Z79.02 Long term (current) use of antithrombotics/antiplatelets; E78.2 Mixed hyperlipidemia; I10 Essential (primary) hypertension; E11.40 Type 2 diabetes mellitus with diabetic neuropathy, unspecified; Z86.73 Personal history of transient ischemic attack (TIA), and cerebral infarction without residual deficits; I25.2 Old myocardial infarction
CPT/HCPCS: 36415; 74177; 80053; 81001; 83690; 85025; 99285; Q9967

== ENCOUNTER → 2024-02-01 09:55 | Outpatient (BNVA) | payer MEDICARE, SELFPAY | PROVIDERS: PCP Nurse Practitioner Family; Referring Provider Nurse Practitioner Family; Visit Provider Specialist | DX: G62.9 Polyneuropathy, unspecified (principal); G62.89 Other specified polyneuropathies | CPT/HCPCS: 95909; 95910 ==